=== PATIENT | male | born 1940 | race Caucasian/White ===

== ENCOUNTER 2017-03-16 13:07 | Emergency (ER) | payer OTHER ==
[~2017-03-16] VITALS: Ht 185.4 cm; Wt 92.1 kg
[~2017-03-16 13:07] MED LIST: ALLO300T2 PO; AMLO5CAP2 PO; AMOX875T PO; BLACK CHERRY PO; PRT40 PO; QUET1TAB7 PO; SRQ/100 PO; SUMA100T15 PO; TEST1INJ2 SQ; VENL150C56 PO
[2017-03-16 13:19] VITALS: TEMP 36.5; Ht 185.4 cm; Wt 92.1 kg
[2017-03-16] MEDS ORDERED: METH1TAB16 PO (13:41)
[2017-03-16 14:26] LABS: BASO % 0.5 %; BASO ABS # 0.04 K/uL (0-0.2); COMPLETE YES; EOS % 1.2 %; HEMATOCRIT 51.6 % (42-52); IG% 0.3 %; LYMPH % 14.9 %; MEAN CELL VOLUME 88.2 fL (80-100); MEAN CORPUSCULAR HEMOGLOBIN 30.9 pg (25-34); MEAN CORPUSCULAR HGB CONC 35.1 g/dl (32-36); MEAN PLATELET VOLUME 10.8 fL (7.4-10.4); MONO % 11.2 %; NEUT % 71.9 %; PLATELET COUNT 212 K/uL (130-400); RED BLOOD COUNT 5.85 M/uL (4.7-6.1); WHITE BLOOD COUNT 7.38 K/uL (4.8-10.8)
[2017-03-16 14:36] LABS: PARTIAL THROMBOPLASTIN RATIO 1.1; PROTHROMBIN TIME (PATIENT) 11.2 SECONDS (9.0-12.0)
--- NOTE | 2017-03-16 14:52 | EMERGENCY ROOM VISIT NOTE ---
ED Visit Note First contact with patient: 13:31 The patient was seen and examined with Otilia Rosado PA-C. I agree with the history, physical and findings. Please see the note for disposition and details.
[2017-03-16] MEDS ORDERED: OXYMETAZOLINE HCL 0.05% NA SPR 15 ML BTL ONE ×2 (14:57→15:00)
[2017-03-16] MEDS ORDERED: LIDOCAINE/EPINEPHRINE 1% 20 ML VIAL ONE (15:10)
--- NOTE | 2017-03-16 15:52 | EMERGENCY ROOM VISIT NOTE ---
ED Visit Note First contact with patient: 13:31 CHIEF COMPLAINT: Nosebleed HISTORY OF PRESENT ILLNESS: This 76-year-old male patient presents to the emergency department pinning of a nosebleed 2 hours. The patient states the bleeding initially began in his right nare, then also began coming from his left ear. The patient reports a constant stream of blood without a nasal clip. The patient does present to the emergency department wearing a nose clip he had at home from previous epistaxis. The patient did have a surgery to cauterize the right nare due to his severe epistaxis one and half years ago. This procedure was done by Dr. Aranda, the patient states he was not a fan of Dr. Aranda and would like to see different ear nose and throat doctor. Prior to arrival, the patient did try Afrin nasal spray with no relief of the symptoms. The patient does use a humidifier, and is not on blood thinners, but the patient does take a baby aspirin once daily. The patient states he has been continuously swallowing blood, and states it feels crampy and coagulated. The patient denies history of bleeding or clotting disorders. The patient denies headache, dizziness, dyspnea, blurry vision, tinnitus, or other associated symptoms. REVIEW OF SYSTEMS: A 10-system review of systems was performed with positives and pertinent negatives listed in the history of present illness. All other systems were reviewed and are negative. ALLERGIES: Iodine contrast MEDICATIONS: Allopurinol, amlodipine/Benazepril, methylphenidate, pantoprazole, Seroquel, Imitrex, testosterone cypionate, venlafaxine, black Calvillo PMH: Gout, hypertension, anxiety/depression, GERD, migraines SOCIAL HISTORY: The patient lives locally with family. He denies drug, alcohol , tobacco use. PHYSICAL EXAM: VITALS: Vitals are noted on the nurse's note and reviewed by myself. Vital signs stable. GENERAL: This is a 76-year-old male, in no acute distress, nondiaphoretic, well- developed well-nourished. SKIN: The skin was without rashes, erythema, edema, or bruising. There is no tenting of the skin. Capillary reflex less than 2 seconds. HEAD: Normocephalic atraumatic. EARS: External auditory canals clear, tympanic membranes pearly woodruff without erythema or effusion bilaterally. EYES: Pupils equal round and reactive to light and accommodation. Conjunctivae without injection, sclerae without icterus. Extraocular movements intact. NOSE: Continuous, runny epistaxis from bilateral nares. No obvious origin of bleeding. No obvious trauma or injury within the nares. No blood clots within the naris. Patent, turbinates without inflammation. No sinus tenderness. MOUTH: Mucous membranes moist. Tonsils are not enlarged. Pharynx without erythema or exudate, however there is a significant amount of blood in the posterior pharynx. Uvula midline. Airway patent. Tongue does not deviate. NECK: Supple without nuchal rigidity. No lymphadenopathy. No thyromegaly. Cervical spine is nontender. No JVD. HEART: Regular rate and rhythm without murmurs gallops or rubs. LUNGS: Clear to auscultation bilaterally without wheezes, rales or rhonchi. No dullness to percussion. No retractions or accessory muscle use. EMERGENCY DEPARTMENT COURSE: Was seen and evaluated as above. Labs were drawn without abnormalities. I discussed with the patient possible treatment options including further Afrin and a Rhino Rocket. The patient states he would like to consider any other treatment options as opposed to the Rhino Rocket due to his previous history and extreme discomfort with this method. I discussed with the patient that I could contact the ENT conservation worker and discuss his case with them and consider an alternative treatment. I contacted Dr. Moore regarding this patient, and was instructed by him to discuss the case with my attending prior to calling the specialist. I discussed the case with Dr. Long, who discussed options of care with the patient including using a Rhino Rocket and attempting to diminish bleeding with lidocaine with epinephrine on the Rhino Rocket. Upon Dr. Long' evaluation of the patient, the active bleeding did stop when the nasal clip was removed. At this time, Dr. Moore and his physician fleet assistant did come to evaluate the patient in the emergency department. Please see his dictation for further management and care. The patient was discharged home in good condition. The patient and his were extremely pleased with their care , and did thank me for contacting ENT versus proceeding with using a Rhino Rocket in the emergency department. DIFFERENTIAL DIAGNOSIS: Epistaxis, bleeding disorder, thrombocytopenia, hypertension, acute sinusitis, septal deviation, malignancy, and others. DIAGNOSIS: Acute epistaxis DISCHARGE INSTRUCTIONS & TREATMENT: Please follow instructions outlined to you by Dr. Moore. Please follow up in their office at your scheduled appointment. Do not blow your nose for the rest of the day, as this may dislodge a clot and cause rebleed. Use Afrin spray as directed for ongoing nosebleed. Please contact ENT in the future if possible for rebleeds. Please follow-up with your PCP and 2-3 days for further evaluation and management. Please return to the emergency department for worsening bleeding, headache, dizziness, difficulty breathing, dizziness, ringing in the ears, or other concerning symptoms. Current/Historical Medications Scheduled Allopurinol (Zyloprim), 150 MG PO HS Amlodipine/Benazepril (Lotrel 5MG/20MG), 1 CAP PO QAM Methylphenidate Hcl (Methylphenidate Hcl Er), 18 MG PO QAM Pantoprazole (Pantoprazole Sodium), 40 MG PO BID Quetiapine Fumarate (Seroquel), 100 MG PO HS Testosterone Cypionate (Testosterone Cypionate), 200 MG SQ Q4WK Venlafaxine Hcl (Effexor Extended Rel), 150 MG PO DAILY [Black Calvillo], 750 MG PO BID Scheduled PRN Quetiapine Fumarate (Seroquel), 25 MG PO DAILY PRN for PRN Sumatriptan Succinate (Imitrex), 25 MG PO DAILY PRN for Headache Allergies Coded Allergies: Iodinated Diagnostic Agents (Verified Allergy, Mild, RASH, 08/29/15) Vital Signs Date Time Temp Pulse Resp B/P (MAP) Pulse Ox O2 Delivery O2 Flow Rate FiO2 03/16/17 16:12 91 18 152/94 94 Room Air 03/16/17 13:19 36.5 106 18 143/93 94 Room Air Laboratory Results 03/16/17 14:10 Red Blood Count 5.85, Mean Corpuscular Volume 88.2, Mean Corpuscular Hemoglobin 30.9, Mean Corpuscular Hemoglobin Concent 35.1, Mean Platelet Volume 10.8, Neutrophils (%) (Auto) 71.9, Lymphocytes (%) (Auto) 14.9, Monocytes (%) (Auto) 11.2, Eosinophils (%) (Auto) 1.2, Basophils (%) (Auto) 0.5, Neutrophils # (Auto ) 5.30, Lymphocytes # (Auto) 1.10, Monocytes # (Auto) 0.83, Eosinophils # (Auto ) 0.09, Basophils # (Auto) 0.04 Test 03/16/17 14:10 White Blood Count 7.38 K/uL (4.8-10.8) Red Blood Count 5.85 M/uL (4.7-6.1) Hemoglobin 18.1 g/dL (14.0-18.0) Hematocrit 51.6 % (42-52) Mean Corpuscular Volume 88.2 fL (80-100) Mean Corpuscular Hemoglobin 30.9 pg (25-34) Mean Corpuscular Hemoglobin Concent 35.1 g/dl (32-36) Platelet Count 212 K/uL (130-400) Mean Platelet Volume 10.8 fL (7.4-10.4) Neutrophils (%) (Auto) 71.9 % Lymphocytes (%) (Auto) 14.9 % Monocytes (%) (Auto) 11.2 % Eosinophils (%) (Auto) 1.2 % Basophils (%) (Auto) 0.5 % Neutrophils # (Auto) 5.30 K/uL (1.4-6.5) Lymphocytes # (Auto) 1.10 K/uL (1.2-3.4) Monocytes # (Auto) 0.83 K/uL (0.11-0.59) Eosinophils # (Auto) 0.09 K/uL (0-0.5) Basophils # (Auto) 0.04 K/uL (0-0.2) RDW Standard Deviation 49.7 fL (36.4-46.3) RDW Coefficient of Variation 15.6 % (11.5-14.5) Immature Granulocyte % (Auto) 0.3 % Immature Granulocyte # (Auto) 0.02 K/uL (0.00-0.02) Prothrombin Time 11.2 SECONDS (9.0-12.0) Prothromb Time International Ratio 1.0 (0.9-1.1) Activated Partial Thromboplast Time 27.9 SECONDS (21.0-31.0) Partial Thromboplastin Ratio 1.1 Medications Administered Medications (Trade) Dose Ordered Sig/Becca Route Start Time Stop Time Status Last Admin Dose Admin Oxymetazoline HCl (Afrin 0.05% Nasal [place]) 75 sprays STK-MED ONCE .ROUTE 03/16/17 14:57 03/16/17 14:58 DC 03/16/17 14:57 75 SPRAYS Lidocaine/ Epinephrine (Xylocaine/Epine 1% Inj) 20 ml STK-MED ONCE .ROUTE 03/16/17 15:10 03/16/17 15:11 DC 03/16/17 15:10 20 ML Departure Information Impression Primary Impression: Epistaxis Dispostion Home / Self-Care Condition GOOD Referrals Noel Rogers D.O. (PCP) Jose Moore MD Forms WORK / SCHOOL INSTRUCTIONS, HOME CARE DOCUMENTATION FORM, IMPORTANT VISIT INFORMATION Patient Instructions ED Nosebleed, [facility] Additional Instructions Please follow instructions outlined to you by Dr. Moore. Please follow up in their office at your scheduled appointment. Do not blow your nose for the rest of the day, as this may dislodge a clot and cause rebleed. Use Afrin spray as directed for ongoing nosebleed. Please contact ENT in the future if possible for rebleeds. Please follow-up with your PCP and 2-3 days for further evaluation and management. Please return to the emergency department for worsening bleeding, headache, dizziness, difficulty breathing, dizziness, ringing in the ears, or other concerning symptoms.
[2017-03-16 16:12] VITALS: BP 152/94; PULSE 91; O2SAT 94
--- NOTE | 2017-03-16 16:32 | ENT CONSULTATION ---
DATE OF CONSULTATION: 03/16/2017 DATE: 03/16/2017 I have been asked by physician digital marketing assistant, Otilia Rosado and Dr. Harrison Long to evaluate this patient with severe epistaxis. HISTORY OF PRESENT ILLNESS: The patient is a very pleasant 76-year-old male who presented to the [facility] Emergency Room this afternoon with severe right-sided epistaxis. This did not respond to Afrin and direct pressure at home as well as Afrin and direct pressure in the Emergency Room. Due to the severe nature, I was asked to evaluate the patient. The patient has a prior history of right-sided epistaxis for which he was seen in the Emergency Room on 08/01/2015 and subsequently again in August of 2015 and had cauterization by Dr. Aranda in his office which failed and he ultimately underwent an endoscopic cauterization in the outpatient surgery center which helped resolve his epistaxis. He had no epistaxis from that August 2015 procedure up until today. He is on a baby aspirin. He does have a history of hypertension. He was mildly hypertensive in the Emergency Room with a blood pressure of 143/93. He denies any personal history of bleeding disorders or family history of bleeding disorders. Prior to my arrival, it seemed that his bleeding had slowed down with the use of nasal clamping. ALLERGIES: IODINATED CONTRAST AGENTS. HOME MEDICATIONS: Allopurinol, amlodipine, methylphenidate, pantoprazole, Seroquel, testosterone, venlafaxine. PAST MEDICAL HISTORY: Gout, hypertension, reflux, low testosterone, anxiety, depression. PAST SURGICAL HISTORY: 1. Status post appendectomy. 2. Status post hernia repair. 3. Status post right-sided endoscopic cauterization. 4. Status post rotator cuff surgery. 5. Status post laminectomy. FAMILY HISTORY: Noncontributory. No bleeding disorders or malignant hyperthermia. SOCIAL HISTORY: The patient is retired. He is . He has 2 children. He denies any tobacco use. He drinks alcohol socially and typically has 1 glass of wine daily. He denies any illicit drug use. REVIEW OF SYSTEMS: The patient has severe epistaxis. He has mild lightheadedness, but denies any shortness of breath or chest pain. Currently he denies any bloody postnasal drip. He denies any facial pain or pressure. He denies any headache. PHYSICAL EXAMINATION: GENERAL: This is an elderly white male in no acute distress who has nasal clamps in place and dried blood over his upper lip and external nose. HEAD, EYES, EARS, NOSE, AND THROAT: External auditory canals and tympanic membranes are clear. Oral cavity and oropharyngeal examination reveals dried blood coating the mucous membranes but no active bleeding and no bloody postnasal drip. NECK EXAMINATION: Revealed no lymphadenopathy or thyroid nodularity. NEUROLOGIC: The patient is awake and alert and oriented x3. Cranial nerves II-XII are grossly intact. The patient has normal respiratory effort. The nasal clamps were removed. The patient has very prominent blood vessels involving the right anterior mid and posterior septum as well as some blood vessels that are prominent involving the right mid and posterior septum. There is mild oozing from several of these locations but no active bleeding. On the left hand side, there were no prominent blood vessels. PROCEDURE: After administration of topical Afrin and lidocaine to the bilateral nasal cavities, a 0-degree rigid endoscope was used to perform endoscopic cauterization of the prominent blood vessels involving the right anterior, mid, and posterior septum as well as the mid and posterior aspect of the right inferior turbinate. After this had been performed, a small amount of fibrillar was placed into the right nasal cavity and further Afrin was applied followed by nasal clamping. After 10 minutes nasal clamping was removed. There was no epistaxis. There was no bloody postnasal drip. IMPRESSION AND RECOMMENDATIONS: A 76-year-old male with severe epistaxis, status post endoscopic cauterization. The patient tolerated the procedure well. I have asked him to observe nasal rest over the next 2 weeks. I have asked him to have very light activity over the next 2 weeks. I would like to see him back in my office in approximately 3 weeks' time, but sooner if there is any epistaxis that he cannot control. The conservative prevention and treatment of epistaxis was discussed with the patient. If you have any questions regarding this consultation, please do not hesitate to contact me.
== END 2017-03-16 16:27 | disposition home or self-care (01) ==
LOC: C.EDB 13:09 → C.EDD 16:27
DX: R04.0 Epistaxis (principal); Z98.890 Other specified postprocedural states; Z79.82 Long term (current) use of aspirin; Z79.899 Other long term (current) drug therapy; M10.9 Gout, unspecified; I10 Essential (primary) hypertension; F41.8 Other specified anxiety disorders; K21.9 Gastro-esophageal reflux disease without esophagitis

== ENCOUNTER 2017-03-18 21:10 | Emergency (ER) | payer OTHER ==
[~2017-03-18] VITALS: Ht 185.4 cm; Wt 93.0 kg
[~2017-03-18 21:10] MED LIST changes: -AMOX875T PO; +METH1TAB16 PO
[2017-03-18 21:18] VITALS: Ht 185.4 cm; Wt 93.0 kg
[2017-03-18] MEDS ORDERED: LIDOCAINE 4% W/AFRIN NASAL SOLN 4ML EXT STA (22:26)
[2017-03-18] MEDS ORDERED: SILVER NITR/POTASSIUM NITRATE 10 APPLICATOR PACK EXT STA (22:26)
[2017-03-18] MEDS ORDERED: LIDOCAINE 4% W/AFRIN NASAL SOLN 4ML ONE (22:27)
--- NOTE | 2017-03-18 22:33 | EMERGENCY ROOM VISIT NOTE ---
History Report prepared by Jose De Jesus: Sadie Kulkarni Under the Supervision of: Dr. Vadim Tinoco M.D. First contact with patient: 22:17 Chief Complaint: NOSE BLEED (MINOR) Stated Complaint: NOSE BLEED History of Present Illness The patient is a 76 year old male who presents to the Emergency Room with complaints of an intermittent right sided epistaxis that began today around noon. The patient states that he was evaluated in the emergency department on Tuesday evening for a right sided epistaxis. He states that Dr. Moore from ENT came in and cauterized his nose. The patient states that he was scheduled for a follow up appointment with Dr. Moore in 2 weeks. He states that today at noon he noticed the nose bleed begin. The patient states that he used Afrin and then called Dr. Moore's office. He states that he was instructed to continue to use Afrin to help alleviate his symptoms. The patient states that he got the bleeding to stop, but it then began again. He states that it was again alleviated with Afrin. The patient states that at 1900 this evening the bleeding began again, noting that he used Afrin twice without relief of his symptoms. He states that he spoke to Dr. Moore, ENT and was told to come to the emergency department. The patient states that he has a history of an endoscopic cauterization in the past. He states that his bleeding was not as bad as Tuesday. He notes the bleeding draining down his throat. He reports that he takes an 81 mg aspirin daily. The patient denies any fall or trauma to the nose. Source of History: patient Onset: noon today Position: nose (right sided) Quality: other (epistaxis) Timing: intermittent Review of Systems See HPI for pertinent positives & negatives. A total of 10 systems reviewed and were otherwise negative. Past Medical & Surgical Medical Problems: (1) Hypertension Family History Cancer Diabetes mellitus Social History Smoking Status: Never Smoker Alcohol Use: occasionally Drug Use: none Marital Status: Housing Status: lives with family Occupation Status: retired Current/Historical Medications Scheduled Allopurinol (Zyloprim), 150 MG PO HS Amlodipine/Benazepril (Lotrel 5MG/20MG), 1 CAP PO QAM Cephalexin Monohydrate (Keflex), 500 MG PO TID Methylphenidate Hcl (Methylphenidate Hcl Er), 18 MG PO QAM Pantoprazole (Pantoprazole Sodium), 40 MG PO BID Quetiapine Fumarate (Seroquel), 100 MG PO HS Testosterone Cypionate (Testosterone Cypionate), 200 MG SQ Q4WK Venlafaxine Hcl (Effexor Extended Rel), 150 MG PO DAILY [Black Calvillo], 750 MG PO BID Scheduled PRN Quetiapine Fumarate (Seroquel), 25 MG PO DAILY PRN for PRN Sumatriptan Succinate (Imitrex), 25 MG PO DAILY PRN for Headache Allergies Coded Allergies: Iodinated Diagnostic Agents (Verified Allergy, Mild, RASH, 03/18/17) Physical Exam Vital Signs Date Time Temp Pulse Resp B/P (MAP) Pulse Ox O2 Delivery O2 Flow Rate FiO2 03/19/17 00:30 84 16 130/88 98 03/18/17 21:18 101 18 138/93 94 Room Air Physical Exam GENERAL: Patient is in no acute distress. HEENT: Oozing of blood from the right anterior septum, there is some oozing of blood down the back of the throat, some dried blood on mustache, left naris is clear. Mucous membranes are moist. NECK: No stridor, no adenopathy, no meningismus, trachea is midline. LUNGS: Clear to auscultation bilaterally, no wheeze, no rhonchi, breath sounds equal. HEART: Without murmurs gallops or rubs, regular rate and rhythm. ABDOMEN: Soft, nontender, bowel sounds positive, no hernias, no peritonitis. EXTREMITIES: No cyanosis or edema, full range of motion of all the joints without pain or difficulty, no signs for acute trauma. NEUROLOGIC: Oriented x 3, no acute motor or sensory deficits, no focal weakness. SKIN: No rash, no jaundice, no diaphoresis. Medical Decision & Procedures Procedure Nasal cautery: Using Afrin, lidocaine spray and silver nitrate, the right anterior septum was cauterized and pressure was applied. No complications. Anterior and Posterior Nasal Packing Indication: persistent nasal bleeding Verbal consent obtained. Risks and benefits were explained with the usual customary discussion. A time out was taken. Clots were removed. The right naris was prepped with Afrin and lidocaine. A 7.5-cm nasal balloon was placed in the standard fashion. The patient tolerated this well. Hemostasis was achieved. No complications. ED Course 2218: The patient was evaluated in room C6. A complete history and physical exam was performed. 2226: Ordered Silver Nitrate/Potassium Nitrate 3 pkt EXT, Lidocaine HCl 4 ml EXT. 2300: I cauterized the patients nose at this time. 2313: I reevaluated the patient and he is still bleeding from his nose. ENT will be consulted. 2315: I discussed the patients case with VERONICA Epstein. He states that he would like the patients nose packed. He states that if it does not work to call him back. 2319: At this time I placed a rhino-rocket in the patient's nose. See procedure note for further detail. 0022: I reevaluated the patient and he is doing well. I discussed the exam findings with him and I discussed the treatment plan. He verbalized complete understanding and agreement. He is ready to go home. Medical Decision The patient is a 76 year old male who presents to the ED with complaints of right sided epistaxis. Differential diagnoses considered include Anterior or posterior epistaxis, coagulopathy, uncontrolled hypertension, anemia. The patient presents with persistent right-sided epistaxis. He had undergone cautery by ENT just a few days ago. The patient had Afrin and a nasal clip applied. He was still bleeding. I then attempted silver nitrate cautery along the anterior nasal septum. The patient was still bleeding some along the anterior aspect of the nose but seemed to be primarily bleeding down the posterior pharynx. He continued to cough up and bringing up clots. He even had some bleeding from the left side of his nose. I spoke with the ENT doctor ammunition assembly ii laborer. He did request we place a 7.5 cm nasal pack on the right. I did place the pack as noted above without complication. No further bleeding afterwards. The patient is being discharged on Keflex to prevent sinusitis. He will be seeing the ENT doctor in 3 days. If he is bleeding despite the nasal pack, he can return for reassessment. Medication Reconcilliation Current Medication List: was personally reviewed by me Blood Pressure Screening Patient's blood pressure: Elevated blood pressure Blood pressure disposition: Elevated BP felt to be situational, Did not require urgent referral Consults Time Called: 2313 Consulting Physician: Dr. Moore ENT Returned Call: 2314 I discussed the patients case with Dr. Freiman, ENT. He states that he would like the patients nose packed. He states that if it does not work to call him back. Impression Primary Impression: Right-sided epistaxis Scribe Attestation The scribe's documentation has been prepared under my direction and personally reviewed by me in its entirety. I confirm that the note above accurately reflects all work, treatment, procedures, and medical decision making performed by me. Departure Information Dispostion Home / Self-Care Prescriptions Cephalexin Monohydrate (Keflex) 500 Mg Cap 500 MG PO TID for 5 Days, #15 CAP Prov: Vadim Tinoco M.D. 03/19/17 Referrals Noel RogersDTroyOTroy (PCP) Forms HOME CARE DOCUMENTATION FORM, IMPORTANT VISIT INFORMATION, WORK / SCHOOL INSTRUCTIONS Patient Instructions My [facility] Additional Instructions pack in for 3 days return for return of bleeding keflex 3x per day for 5 days see ENT on Tuesday
[2017-03-19] MEDS ORDERED: CEPH500C PO (00:21)
[2017-03-19 00:30] VITALS: BP 130/88; PULSE 84; O2SAT 98
== END 2017-03-19 00:30 | disposition home or self-care (01) ==
LOC: C.EDB 21:12 → C.EDC 03-19 00:30
DX: R04.0 Epistaxis (principal); Z79.82 Long term (current) use of aspirin; I10 Essential (primary) hypertension; Z80.9 Family history of malignant neoplasm, unspecified; Z83.3 Family history of diabetes mellitus; Z79.899 Other long term (current) drug therapy

== ENCOUNTER 2018-11-22 09:30 | Inpatient (IN) ==
[2018-11-22] MEDS ORDERED: SODIUM CHLORIDE 0.9% 1000ML 1,000 ML IV SCH (10:00)
[2018-11-22 10:20] LABS: Basophils # (auto) 0.03 K/uL (0-0.2); Basophils % (auto) 0.5 %; Eosinophils # (auto) 0.23 K/uL (0-0.5); Eosinophils % (auto) 3.5 %; Hematocrit (blood only) 47.6 % (42-52); Hemoglobin 16.5 g/dL (14.0-18.0); Immature Granulocytes # (auto) 0.02 K/uL (0.00-0.02); Immature Granulocytes % (auto) 0.3 %; Lymphocytes # (auto) 1.21 K/uL (1.2-3.4); Lymphocytes % (auto) 18.5 %; Mean Corpuscular Hgb Conc 34.7 g/dL (32-36); Mean Corpuscular Volume 91.5 fL (80-100); Mean Platelet Volume 11.2 fL (7.4-10.4); Monocytes # (auto) 0.48 K/uL (0.11-0.59); Monocytes % (auto) 7.3 %; Neutrophils # (auto) 4.58 K/uL (1.4-6.5); Neutrophils % (auto) 69.9 %; Platelet Count 201 K/uL (130-400); RDW Coefficient of Variation 14.6 % (11.5-14.5); RDW Standard Deviation 49.3 fL (36.4-46.3); White Blood Count 6.55 K/uL (4.8-10.8)
[2018-11-22 10:31] LABS: INR 1.1 (0.9-1.1); Partial Thromboplastin Time 27.3 Seconds (21.0-31.0); Prothrombin Time 10.9 Seconds (9.0-12.0)
[2018-11-22 10:35] LABS: Albumin Level 3.4 gm/dl (3.4-5.0); Calcium 8.5 mg/dl (8.5-10.1); Est GFR (African American) 70.7; Potassium 3.7 mmol/L (3.5-5.1)
[2018-11-22 10:38] LABS: Albumin Globulin Ratio 0.9 (0.9-2); Bilirubin,Total 0.5 mg/dl (0.2-1); Globulin 3.8 gm/dl (2.5-4.0); Total Protein 7.2 gm/dl (6.4-8.2)
[2018-11-22 11:47] LABS: Appearance Urine Clear (Clear); Bacteria Urine Automated Negative (Negative); Bilirubin Urine Negative (Negative); Blood Urine Negative (Negative); Color Urine Dark Yellow; Glucose Urine UA Negative (Negative); Ketones Urine Trace (Negative); Leukocyte Esterase Urine Trace (Negative); Nitrite Urine Negative (Negative); Protein Urine 2+ (Negative); RBC Urine Automated 0-4 /hpf (0-4); Specific Gravity Urine 1.025 (1.000-1.030); Urobilinogen Urine Negative (Negative)
--- NOTE | 2018-11-22 14:30 | History & Physical Report ---
Date of Service November 22, 2018 Assessment & Plan (1) GI bleed: several large, dark bloody bowel movements, mixed with liquid stool started this morning no history of this no abdominal pain, no hematemesis Hb stable and BP stable check stool culture, C diff (on abx) repeat H/H at 8pm with a type and cross NPO after midnight Pepcid IV consult Dr. Yee to see tomorrow stool was very dark, borderline like melena, consider PUD vs infectious diarrhea vs ischemic colitis (2) Hypertension: continue Lotrel and metoprolol (3) Depression: continue Abilify and Effexor (4) S/P trigger finger release: apply ice to left hand q3 hours History of Present Illness Chief Complaint: I am having bloody bowels Primary Care Provider: Noel Rogers, DO 78 yo male with recent history of trigger finger release by Dr. Colin, presented to the ED today with c/o bloody bowel movements. The patient has never had GI bleeding in the past. No history of ulcers, no history of diverticular disease to his knowledge. He does have hemorrhoids but they never bleed. He had a colonoscopy a few years ago, thinks he had a few polyps. He felt well, was recovering from trigger finger release. He was taking a prophylactic antibiotic. Ate well yesterday, no suspicious food like undercooked chicken or beef. He had urge to move bowels this morning and he described it as large volume diarrhea but it was stool mixed with both red and dark blood as well as clots. There was no abdominal pain associated with the BM. No nausea or vomiting. He came to the ED. Vitals were stable, Hb was 16. ED planned to send him home with GI follow up with [facility]. However, he had two further large BM. The BM were very dark, melanotic mixed with brighter red blood. Asked for admission. Patient is a retired physicist. No history of alcohol abuse, no tobacco history. Mother had colon cancer. Father had diabetes and HTN. Allergies Allergy/AdvReac Type Severity Reaction Status Date / Time Iodinated Contrast- Oral and Allergy Mild RASH Verified 11/21/18 06:25 IV Dye Home Medications Home Medications Medication Instructions Recorded Confirmed Type allopurinol 150 mg PO QPM 11/01/18 11/22/18 History amlodipine-benazepril [Lotrel] 1 cap PO QAM 11/01/18 11/22/18 History aripiprazole [Abilify] 1 mg PO QAM 11/01/18 11/22/18 History metoprolol succinate 50 mg PO QAM 11/01/18 11/22/18 History pantoprazole 40 mg PO QAM 11/01/18 11/22/18 History quetiapine [Seroquel] 100 mg PO HS 11/01/18 11/22/18 History sumatriptan succinate 1 dose PO UD PRN 11/01/18 11/22/18 History venlafaxine 150 mg PO QAM 11/01/18 11/22/18 History testosterone cypionate 1 dose SUBCUT DIRECTED 11/22/18 11/22/18 History [Depo-Testosterone] Past Med/Surg History Medical History Anxiety Chronic back pain Depression GERD (gastroesophageal reflux disease) Gout Hearing deficit BL SPICER Hypertension Surgical History H/O tooth extraction History of appendectomy History of bilateral inguinal hernia repair History of colonoscopy History of esophagogastroduodenoscopy (EGD) History of lumbar laminectomy History of repair of rotator cuff LT History of thumb surgery History of tonsillectomy Hx of cataract surgery Family History Father Family history of diabetes mellitus Mother Family hx of colon cancer Social History Preferred Language: Swedish Communication Ability: Effective Wellness Rn Required: No Beliefs That Will Affect Care: None Current Living Situation: Spouse Other Information That Helps Us Care for You: No Feels Safe at Home: Yes Safety Concerns: Feels Safe At This Time Smoking Status: Never smoker Do You Dip or Chew Tobacco: No Second Hand Exposure: No Tobacco Cessation Education Requested by Patient: No Hx Alcohol Use: Yes Alcohol type: beer, wine and hard liquor Hx Substance Use: No Review of Systems Review of Systems: All systems reviewed & are unremarkable except as noted in HPI & below Physical Exam Vital Signs (Past 24 Hours): Last Vital Signs Temp 36.9 C 11/22/18 09:33 Pulse 76 11/22/18 12:00 Resp 18 11/22/18 12:00 BP 164/97 H 11/22/18 12:00 Pulse Ox 98 11/22/18 12:00 Constitutional: WD/WN, vitals as above Eyes: PERRL, conjunctivae normal, anicteric sclerae ENMT: external ear and nose normal, oropharynx normal Neck: trachea midline, no thyromegaly Respiratory: normal respiratory effort, lungs clear to auscultation Cardiovascular: RRR, no murmur, no edema Gastrointestinal (Abdomen): normal bowel sounds, soft, nontender, no hepatosplenomegaly Musculoskeletal: no cyanosis or clubbing, extremities motor strength 5/5 left trigger finger, tender, mild swelling Skin: no rashes, warm and dry Neurologic: patellar DTR's 2+ bilat, sensation intact and PERRL, EOMI, accommodation nl, no face palsy, no dysarthria Psychiatric: A+Ox3, euthymic affect Lymphatic: no cervical or axillary lymphadenopathy Results & Data Laboratory Results Laboratory Results - last 24 hr 11/22/18 11/22/18 11/22/18 10:02 10:02 10:02 WBC 6.55 RBC 5.20 Hgb 16.5 Hct 47.6 MCV 91.5 MCH 31.7 MCHC 34.7 RDW Std Deviation 49.3 H RDW Coeff of Aisha 14.6 H Plt Count 201 MPV 11.2 H Immature Gran % (Auto) 0.3 Neut % (Auto) 69.9 Lymph % (Auto) 18.5 [place] % (Auto) 7.3 Eos % (Auto) 3.5 Baso % (Auto) 0.5 Immature Gran # (Auto) 0.02 Neut # (Auto) 4.58 Lymph # (Auto) 1.21 [place] # (Auto) 0.48 Eos # (Auto) 0.23 Baso # (Auto) 0.03 PT 10.9 INR 1.1 APTT 27.3 PTT Ratio 1.0 Sodium 140 Potassium 3.7 Chloride 109 H Carbon Dioxide 29 Anion Gap 2.0 L BUN 21 H Creatinine 1.15 Est Cr Clr Drug Dosing 64.0 Est GFR ( Amer) 70.7 Est GFR (Non-Af Amer) 61.0 BUN/Creatinine Ratio 18.0 Glucose 117 H Calcium 8.5 Total Bilirubin 0.5 AST 24 ALT 91 H Alkaline Phosphatase 80 Total Protein 7.2 Albumin 3.4 Globulin 3.8 Albumin/Globulin Ratio 0.9 Lipase 196 Urine Color Urine Appearance Urine pH Ur Specific [place] Urine Protein Urine Glucose (UA) Urine Ketones Urine Blood Urine Nitrite Urine Bilirubin Urine Urobilinogen Ur Leukocyte Esterase Urine WBC (Auto) Urine RBC (Auto) U Hyaline Cast (Auto) U Epithel Cells (Auto) Urine Bacteria (Auto) Stl C. diff Tox B Gene Stl C.difficile Tox A&B Blood Type Antibody Screen Crossmatch 11/22/18 11/22/18 11/22/18 10:05 11:35 17:00 WBC RBC Hgb Hct MCV MCH MCHC RDW Std Deviation RDW Coeff of Aisha Plt Count MPV Immature Gran % (Auto) Neut % (Auto) Lymph % (Auto) [place] % (Auto) Eos % (Auto) Baso % (Auto) Immature Gran # (Auto) Neut # (Auto) Lymph # (Auto) [place] # (Auto) Eos # (Auto) Baso # (Auto) PT INR APTT PTT Ratio Sodium Potassium Chloride Carbon Dioxide Anion Gap BUN Creatinine Est Cr Clr Drug Dosing Est GFR ( Amer) Est GFR (Non-Af Amer) BUN/Creatinine Ratio Glucose Calcium Total Bilirubin AST ALT Alkaline Phosphatase Total Protein Albumin Globulin Albumin/Globulin Ratio Lipase Urine Color Dark Yellow Urine Appearance Clear Urine pH 7.0 Ur Specific [place] 1.025 Urine Protein 2+ H Urine Glucose (UA) Negative Urine Ketones Trace H Urine Blood Negative Urine Nitrite Negative Urine Bilirubin Negative Urine Urobilinogen Negative Ur Leukocyte Esterase Trace H Urine WBC (Auto) 5-10 H Urine RBC (Auto) 0-4 U Hyaline Cast (Auto) 1-5 U Epithel Cells (Auto) 10-20 H Urine Bacteria (Auto) Negative Stl C. diff Tox B Gene Positive Cdiff Gene A Stl C.difficile Tox A&B Negative Cdiff Toxin Blood Type A Positive Antibody Screen NEGATIVE Crossmatch See Detail 11/22/18 20:02 WBC RBC Hgb 15.0 Hct 43.1 MCV MCH MCHC RDW Std Deviation RDW Coeff of Aisha Plt Count MPV Immature Gran % (Auto) Neut % (Auto) Lymph % (Auto) [place] % (Auto) Eos % (Auto) Baso % (Auto) Immature Gran # (Auto) Neut # (Auto) Lymph # (Auto) [place] # (Auto) Eos # (Auto) Baso # (Auto) PT INR APTT PTT Ratio Sodium Potassium Chloride Carbon Dioxide Anion Gap BUN Creatinine Est Cr Clr Drug Dosing Est GFR ( Amer) Est GFR (Non-Af Amer) BUN/Creatinine Ratio Glucose Calcium Total Bilirubin AST ALT Alkaline Phosphatase Total Protein Albumin Globulin Albumin/Globulin Ratio Lipase Urine Color Urine Appearance Urine pH Ur Specific [place] Urine Protein Urine Glucose (UA) Urine Ketones Urine Blood Urine Nitrite Urine Bilirubin Urine Urobilinogen Ur Leukocyte Esterase Urine WBC (Auto) Urine RBC (Auto) U Hyaline Cast (Auto) U Epithel Cells (Auto) Urine Bacteria (Auto) Stl C. diff Tox B Gene Stl C.difficile Tox A&B Blood Type Antibody Screen Crossmatch Code Status & VTE Plan Code Status full code VTE Prophylaxis Plan VTE Prophylaxis will be ordered: Yes
--- NOTE | 2018-11-22 14:58 | Emergency Department Note ---
Entered by Isabel Martin acting as a scribe for History of Present Illness General Chief complaint: GI Bleed Stated complaint: BLOOD IN STOOL Time Seen by Provider: 11/22/18 09:49 History of Present Illness Provider complaint: rectal bleeding Onset (ago): day(s) (this morning) Location: buttocks (rectum) Pain Consistency: + other (episode) Quality: + other (rectal bleeding) Associated symptoms: + other (lightheadedness. Denies: urinary symptoms, nausea, vomiting, leg swelling.) The patient is a 78 year old white male w/ PMHx of HTN, s/p trigger finger repair, who presents to the ED w/ CC of an episode of rectal bleeding beginning this morning. He reports he did not have to strain to have the bowel movement, and had a loose stool with blood. The patient reports lightheadedness. He denies urinary symptoms, nausea, vomiting, or leg swelling. The patient notes history o f hemorrhoids, and denies history of IBS, Chrohn's, etc. He denies recent constipation or trauma. The patient states he had a trigger finger repair yesterday, under sedation, by Dr. Roy. He reports he began taking an antibiotic last night. The patient takes a baby aspirin daily, and no other blood thinners. Home Medications Home Medications Medication Instructions Recorded Confirmed Type allopurinol 150 mg PO QPM 11/01/18 11/22/18 History amlodipine-benazepril [Lotrel] 1 cap PO QAM 11/01/18 11/22/18 History aripiprazole [Abilify] 1 mg PO QAM 11/01/18 11/22/18 History metoprolol succinate 50 mg PO QAM 11/01/18 11/22/18 History pantoprazole 40 mg PO QAM 11/01/18 11/22/18 History quetiapine [Seroquel] 100 mg PO HS 11/01/18 11/22/18 History sumatriptan succinate 1 dose PO UD PRN 11/01/18 11/22/18 History venlafaxine 150 mg PO QAM 11/01/18 11/22/18 History testosterone cypionate 1 dose SUBCUT DIRECTED 11/22/18 11/22/18 History [Depo-Testosterone] Allergies Allergy/AdvReac Type Severity Reaction Status Date / Time Iodinated Contrast- Oral and Allergy Mild RASH Verified 11/21/18 06:25 IV Dye Past Med/Surg History Medical History Anxiety Chronic back pain Depression GERD (gastroesophageal reflux disease) Gout Hearing deficit BL SPICER Hypertension Surgical History H/O tooth extraction History of appendectomy History of bilateral inguinal hernia repair History of colonoscopy History of esophagogastroduodenoscopy (EGD) History of lumbar laminectomy History of repair of rotator cuff LT History of thumb surgery History of tonsillectomy Hx of cataract surgery Family History Father Family history of diabetes mellitus Mother Family hx of colon cancer Social History Preferred Language: Amharic Communication Ability: Effective Beliefs That Will Affect Care: Tenriism Tenriism Beliefs: HOAHAOISM Current Living Situation: Spouse Feels Safe at Home: Yes Smoking Status: Never smoker Second Hand Exposure: Yes (PREVIOUS EXPOSURE) Hx Alcohol Use: Yes Alcohol type: wine Hx Substance Use: No Review of Systems See HPI for pertinent positives & negatives. and A total of 10 systems reviewed and were otherwise negative Physical Exam Vital Signs Vital Signs - 24 hr 11/22/18 09:33 11/22/18 12:00 Temperature 36.9 C Temperature Source Oral Sepsis Recent Fever Within 48 Hours No Sepsis New/Unexplained Change in Mental Status No Sepsis Action Taken by Nursing No Action Required Pulse Rate 97 H Pulse Rate [Right Finger] 76 Pulse Rhythm [Right Finger] Regular Pulse Strength [Right Finger] Normal Respiratory Rate 20 18 Respiratory Effort / Characteristics Non-Labored Spontaneous Respiratory Depth Normal Respiratory Pattern Regular Blood Pressure 133/83 Blood Pressure [Right Arm] 164/97 H Blood Pressure Mean 99 Blood Pressure Mean [Right Arm] 119 Blood Pressure Position [Right Arm] Lying Pulse Oximetry 95 98 Oxygen Delivery Method Room Air Room Air GENERAL: Well appearing, well nourished, NAD, non-toxic. EYE EXAM: Normal conjunctiva. PERRL, no anisocoria and EOM's grossly intact w/o pain. OROPHARYNX: Moist MM. NECK: Supple, no nuchal rigidity, no adenopathy, non-tender. No signs of meningismus. LUNGS: Clear to auscultation. Normal chest wall mechanics. HEART: NSR, no MRG. ABDOMEN: Abdomen soft, non-tender, normo-active bowel sounds, no masses, no rebound or guarding. RECTAL: No anal fissures. No hemorrhoids. No active bleeding. Hemoccult pos itive. No dark, tarry stool. Scant bright red blood, no masses. BACK: No CVA TTP. SKIN: No rashes and no bruising. UPPER EXTREMITIES: Upper extremities are grossly normal. LOWER EXTREMITIES: No pitting edema. No calf pain. NEURO EXAM: A and O x3. GCS 15. Moves all 4 extremities on command w/o issue. Course 1000: Past medical records reviewed. The patient was evaluated in room B9, and a complete history and physical examination were performed. 1208: I reevaluated and updated the patient. 1254: The patient and his do not feel comfortable with discharge home. I discussed test results. They verbalized agreement with the treatment plan. 1302: I spoke with a PA from [facility]. They state the patient can stop antibiotics if he has no symptoms of infection. 1314: I reviewed the patient's case with Dr. Morataya, [facility] hospitalist. He will evaluate the patient for further management. Consultations Consultation #1: [facility] Time: 13:02 Consultation #2: Dr. Morataya, [facility] hospitalist Time: 13:14 Administered Medications Sodium Chloride (Nss 1000ml) 1,000 mls @ 100 mls/hr IV .Q10H ALISSON Stop: 11/22/18 19:59 Last Admin: 11/22/18 10:43 Dose: 100 mls/hr Documented by: [id number] Medical Decision Making Medical Records Attestation: I reviewed the patient's medical records. Home Medications Current Medication List: was personally reviewed by me Laboratory Data Attestation: I reviewed the patient's lab results. Result diagrams: 11/22/18 10:02 11/22/18 10:02 Lab Results 11/22/18 11/22/18 11/22/18 Range/Units 10:02 10:02 10:02 WBC 6.55 (4.8-10.8) K/uL RBC 5.20 (4.7-6.1) M/uL Hgb 16.5 (14.0-18.0) g/dL Hct 47.6 (42-52) % MCV 91.5 (80-100) fL MCH 31.7 (25-34) pg MCHC 34.7 (32-36) g/dL RDW Std Deviation 49.3 H (36.4-46.3) fL RDW Coeff of Aisha 14.6 H (11.5-14.5) % Plt Count 201 (130-400) K/uL MPV 11.2 H (7.4-10.4) fL Immature Gran % (Auto) 0.3 % Neut % (Auto) 69.9 % Lymph % (Auto) 18.5 % [place] % (Auto) 7.3 % Eos % (Auto) 3.5 % Baso % (Auto) 0.5 % Immature Gran # (Auto) 0.02 (0.00-0.02) K/uL Neut # (Auto) 4.58 (1.4-6.5) K/uL Lymph # (Auto) 1.21 (1.2-3.4) K/uL [place] # (Auto) 0.48 (0.11-0.59) K/uL Eos # (Auto) 0.23 (0-0.5) K/uL Baso # (Auto) 0.03 (0-0.2) K/uL PT 10.9 (9.0-12.0) Seconds INR 1.1 (0.9-1.1) APTT 27.3 (21.0-31.0) Seconds PTT Ratio 1.0 Sodium 140 (136-145) mmol/L Potassium 3.7 (3.5-5.1) mmol/L Chloride 109 H (98-107) mmol/L Carbon Dioxide 29 (21-32) mmol/L Anion Gap 2.0 L (3-11) BUN 21 H (7-18) mg/dl Creatinine 1.15 (0.6-1.4) mg/dl Est Cr Clr Drug Dosing 64.0 ml/min Est GFR ( Amer) 70.7 Est GFR (Non-Af Amer) 61.0 BUN/Creatinine Ratio 18.0 (10-20) Glucose 117 H (70-99) mg/dl Calcium 8.5 (8.5-10.1) mg/dl Total Bilirubin 0.5 (0.2-1) mg/dl AST 24 (15-37) U/L ALT 91 H (12-78) U/L Alkaline Phosphatase 80 (45-117) U/L Total Protein 7.2 (6.4-8.2) gm/dl Albumin 3.4 (3.4-5.0) gm/dl Globulin 3.8 (2.5-4.0) gm/dl Albumin/Globulin Ratio 0.9 (0.9-2) Lipase 196 (73-393) U/L Urine Color Urine Appearance (Clear) Urine pH (4.5-7.5) Ur Specific [place] (1.000-1.030) Urine Protein (Negative) Urine Glucose (UA) (Negative) Urine Ketones (Negative) Urine Blood (Negative) Urine Nitrite (Negative) Urine Bilirubin (Negative) Urine Urobilinogen (Negative) Ur Leukocyte Esterase (Negative) Urine WBC (Auto) (0-5) /hpf Urine RBC (Auto) (0-4) /hpf U Hyaline Cast (Auto) (0-5) /lpf U Epithel Cells (Auto) (0-5) /lpf Urine Bacteria (Auto) (Negative) Blood Type Antibody Screen 11/22/18 11/22/18 Range/Units 10:05 11:35 WBC (4.8-10.8) K/uL RBC (4.7-6.1) M/uL Hgb (14.0-18.0) g/dL Hct (42-52) % MCV (80-100) fL MCH (25-34) pg MCHC (32-36) g/dL RDW Std Deviation (36.4-46.3) fL RDW Coeff of Aisha (11.5-14.5) % Plt Count (130-400) K/uL MPV (7.4-10.4) fL Immature Gran % (Auto) % Neut % (Auto) % Lymph % (Auto) % [place] % (Auto) % Eos % (Auto) % Baso % (Auto) % Immature Gran # (Auto) (0.00-0.02) K/uL Neut # (Auto) (1.4-6.5) K/uL Lymph # (Auto) (1.2-3.4) K/uL [place] # (Auto) (0.11-0.59) K/uL Eos # (Auto) (0-0.5) K/uL Baso # (Auto) (0-0.2) K/uL PT (9.0-12.0) Seconds INR (0.9-1.1) APTT (21.0-31.0) Seconds PTT Ratio Sodium (136-145) mmol/L Potassium (3.5-5.1) mmol/L Chloride (98-107) mmol/L Carbon Dioxide (21-32) mmol/L Anion Gap (3-11) BUN (7-18) mg/dl Creatinine (0.6-1.4) mg/dl Est Cr Clr Drug Dosing ml/min Est GFR ( Amer) Est GFR (Non-Af Amer) BUN/Creatinine Ratio (10-20) Glucose (70-99) mg/dl Calcium (8.5-10.1) mg/dl Total Bilirubin (0.2-1) mg/dl AST (15-37) U/L ALT (12-78) U/L Alkaline Phosphatase (45-117) U/L Total Protein (6.4-8.2) gm/dl Albumin (3.4-5.0) gm/dl Globulin (2.5-4.0) gm/dl Albumin/Globulin Ratio (0.9-2) Lipase (73-393) U/L Urine Color Dark Yellow Urine Appearance Clear (Clear) Urine pH 7.0 (4.5-7.5) Ur Specific [place] 1.025 (1.000-1.030) Urine Protein 2+ H (Negative) Urine Glucose (UA) Negative (Negative) Urine Ketones Trace H (Negative) Urine Blood Negative (Negative) Urine Nitrite Negative (Negative) Urine Bilirubin Negative (Negative) Urine Urobilinogen Negative (Negative) Ur Leukocyte Esterase Trace H (Negative) Urine WBC (Auto) 5-10 H (0-5) /hpf Urine RBC (Auto) 0-4 (0-4) /hpf U Hyaline Cast (Auto) 1-5 (0-5) /lpf U Epithel Cells (Auto) 10-20 H (0-5) /lpf Urine Bacteria (Auto) Negative (Negative) Blood Type A Positive Antibody Screen NEGATIVE ECG Data Attestation: I personally reviewed and interpreted this ECG as follows: Indication: weakness Rate (beats per minute): 64 Rhythm: normal sinus Findings: + other (normal intervals), + Q waves (lead 2), + ST depression (slight, in lateral), + T-wave inversion (AVL) and + left axis deviation Comparison ECG Date: from (10/17/14) Change: no significant change Blood Pressure Blood Pressure Findings: Elevated blood pressure Blood Pressure Disposition: further management by hospitalist YARELY Narrative The patient is a 78 year old white male w/ PMHx of HTN, s/p trigger finger repair, who presents to the ED w/ CC of an episode of rectal bleeding beginning this morning. Etiologies such as esophagitis, variceal bleed, [place]er[place]aves, [place] tear, gastritis, peptic ulcer disease, AVM, inflammatory bowel disease, ischemia, diverticulosis, colitis, malignancy, coagulopathy, thrombocytopenia, fissure, hemorrhoid, epistaxis , as well as others were entertained. Patient was seen and evaluated the bedside. The patient was related that he was having some rectal bleeding today. He did state that he was slightly lightheaded but denies any abdominal pain nausea vomiting. The patient did have a recent procedure for trigger finger of his left hand. The patient believes he was sedated and not intubated. He states that there were no complications yesterday. Patient's left hand is otherwise well perfused. Bandage was kept and placed at this time. The patient did relate that he was started on prophylactic antibiotics given his recent procedure. Given the patient's lack of pain believe the likelihood of diverticulitis or inflammatory bowel disease to be unlikely. The patient states that he did have a negative colonoscopy approximate 4-5 years ago. No prior history of colon malignancy. Patient does state he does have a history of hemorrhoids and the patient denies any recent issues with constipation. Patient did have blood work completed along with EKG was given IV fluids and did have a type and screen as well as a rectal exam performed. Patient's rectal exam did show some bright red blood but no dark tarry stool. The patient does not have any evidence of bleeding hemorrhoid externally. No fissures. Patient's blood counts are fairly unremarkable. I did discuss with the patient that this may be medication related given his recent antibiotic use. Again the patient has no abdominal pain. The patient was arranged to have outpatient gastroenterology follow-up. Just prior to discharge the patient did have another bloody bowel movement. Given this concern and difficulty with reassurance of the patient the family member I did discuss case with the on-call hospitalist who agreed to further evaluate treat the patient and trend the patient's H&H. Patient was admitted to the medicine medicine service. Impression & Plan Rectal bleeding Discharge Plan Visit Data Chief Complaint: GI Bleed Stated Complaint: BLOOD IN STOOL ED Provider: Harrison Long Discharge Problem: Rectal bleeding Patient Disposition: Being Evaluated by Hospitalist Condition: Good Prescriptions Prescriptions: No Action metoprolol succinate 50 mg Tablet Extended Release 24 Hr 50 mg PO QAM RF: 0 sumatriptan succinate 100 mg Tablet 1 dose PO UD PRN (Reason: Migraine Headache) RF: 0 quetiapine [Seroquel] 100 mg Tablet 100 mg PO HS RF: 0 amlodipine-benazepril [Lotrel] 5-20 mg Capsule 1 cap PO QAM RF: 0 pantoprazole 40 mg Tablet,Delayed Release (Dr/Ec) 40 mg PO QAM RF: 0 allopurinol 300 mg Tablet 150 mg PO QPM RF: 0 aripiprazole [Abilify] 2 mg Tablet 1 mg PO QAM RF: 0 venlafaxine 150 mg Tablet Extended Release 24hr 150 mg PO QAM RF: 0 testosterone cypionate [Depo-Testosterone] 200 mg/mL oil 1 dose subcut DIRECTED RF: 0 Referrals Referrals: Donita Henriquez PA-C [[facility]] - (You have an appointment at [facility] on November 28 at 11:30am. ) Noel Rogers DO [Primary Care Provider] - The estephaniaibe's documentation has been prepared under my direction and personally reviewed by me in its entirety. I confirm that the note above accurately reflects all work, treatment, procedures, and medical decision making performed by me.
[2018-11-22] MEDS ORDERED: ONDANSETRON INJ 2 MG/ML 2 ML VIAL IV PRN (16:15)
[2018-11-22] MEDS ORDERED: ACETAMINOPHEN 325 MG TAB PO PRN (16:15)
[2018-11-22 20:02] LABS: Cdiff Antigen Positive; Cdiff Toxin A+B Negative Cdiff Toxin (Negative)
[2018-11-22 20:08] LABS: Hematocrit (blood only) 43.1 % (42-52)
[2018-11-22] MEDS ORDERED: INFLUENZA ADMINISTRATION CHARGE ONE (20:30)
[2018-11-22] MEDS ORDERED: INFLUENZA VIRUS QUAD VACCINE 0.5 ML SYR IM ONE (20:30)
[2018-11-22] MEDS: NSS + 20MEQ KCL 20 MEQ/1,000 ML BAG IV SCH (20:34)
[2018-11-22] MEDS: ALLOPURINOL 300 MG TAB PO SCH (20:35)
[2018-11-22] MEDS: FAMOTIDINE 20 MG in SYRINGE 3 ML IV SCH (21:16)
[2018-11-22] MEDS: QUETIAPINE FUMARATE 100 MG TABLET PO SCH (22:06)
[2018-11-23] MEDS: RASPBERRY SYRUP 5 ML UDP PO SCH ×2 (00:34→06:09)
[2018-11-23] MEDS: VANCOMYCIN HCL 125 MG/2.5ML SOLN PO SCH ×2 (00:34→06:11)
[2018-11-23 04:37] LABS: Hematocrit (blood only) 39.1 % (42-52); Hemoglobin 13.2 g/dL (14.0-18.0)
[2018-11-23 04:59] LABS: BUN Creatinine Ratio 19.8 (10-20); Creatinine Clr Calc Pharmacy 61.2 ml/min; Est GFR (African American) 73.8; Est GFR (Non-African American) 63.7
[2018-11-23] MEDS: NSS + 20MEQ KCL 20 MEQ/1,000 ML BAG IV SCH ×2 (06:09→21:03)
[2018-11-23] MEDS: METOPROLOL SUCC 50MG EXT REL TAB PO SCH (08:49)
[2018-11-23] MEDS: FAMOTIDINE 20 MG in SYRINGE 3 ML IV SCH ×2 (08:49→20:19)
[2018-11-23] MEDS: VENLAFAXINE HCL XR 150 MG CAPXR PO SCH (08:49)
[2018-11-23] MEDS: ENALAPRIL MALEATE 10 MG TAB PO SCH (08:49)
[2018-11-23] MEDS: AMLODIPINE BESYLATE 5 MG TAB PO SCH (08:49)
[2018-11-23] MEDS ORDERED: ARIPIprazole 1 MG/ML ORAL SOLN 150 ML BTL PO SCH (09:00)
[2018-11-23] MEDS: ARIPIprazole 1 MG/ML ORAL SOLN 150 ML BTL PO SCH (09:10)
--- NOTE | 2018-11-23 09:53 | Gastrointestinal Consultation ---
Date of Consultation November 23, 2018 Assessment & Plan (1) GI bleed: (2) Melena: Pt is a 78 y.o male s/p trigger finger release surgery with recent NSAID use presenting with acute blood loss anemia and melena and positive C Diff gene with negative toxins A&B. 1. Keep NPO for now. 2. EGD for further evaluation by Dr. Yee today. 3. Continue Pepcid 20 mg IV BID. 4. Discontinue Vancomycin as C Diff testing not consistent with active Difficile infection. 5. Additional recommendations will be made pending results of testing. Supervising Physician Co-Signing Physician Notes Agree with DEIRDRE Boone as above Abd: Soft, NT, ND, +BS Continue current therapy Proceed with EGD now History of Present Illness Reason for Consultation: Dr. Morataya Requesting Physician: KELLEE Attending Physician: Jj Morataya, History of Present Illness Hugh Cruz is a 78 y.o male with a history of GERD , depression, gout and chronic back pain admitted to the hospital approximately 24 hours after having undergone hand surgery by Dr. Roy for a trigger finger release. Patient reports he took some Advil last night for management of pain and swelling. Patient also started taking oral Keflex as prescribed postoperatively. He is also on a daily low dose aspirin. States he began having dark and melanotic stools, some liquid in nature mixed with darker red blood. Concerned, he presented to the ER for further evaluation. On arrival, he was noted to have a H&H of 15.0 and 43.1. This has subsequently dropped to 13.2 and 39.1 this morning. He also did have stool studies to exclude enteric pathogens due to the loose nature of the stools. Cx is pending and C Diff testing revealed a positive C Diff gene but negative toxin A and B. He was started on oral Vancomycin in this regard. He is also on IV Pepcid. In regard to symptoms, he reports passing a loose black stool at 0830. Denies any SOB, HEAD, chest pain, palpitations, abdominal pain, n/v, hematemesis or other GI complaints. Allergies Allergy/AdvReac Type Severity Reaction Status Date / Time Iodinated Contrast- Oral and Allergy Mild RASH Verified 11/23/18 16:23 IV Dye Home Medications Home Medications Medication Instructions Recorded Confirmed Type allopurinol 150 mg PO QPM 11/01/18 11/22/18 History amlodipine-benazepril [Lotrel] 1 cap PO QAM 11/01/18 11/22/18 History aripiprazole [Abilify] 1 mg PO QAM 11/01/18 11/22/18 History metoprolol succinate 50 mg PO QAM 11/01/18 11/22/18 History pantoprazole 40 mg PO QAM 11/01/18 11/22/18 History quetiapine [Seroquel] 100 mg PO HS 11/01/18 11/22/18 History sumatriptan succinate 1 dose PO UD PRN 11/01/18 11/22/18 History venlafaxine 150 mg PO QAM 11/01/18 11/22/18 History testosterone cypionate 1 dose SUBCUT DIRECTED 11/22/18 11/22/18 History [Depo-Testosterone] Patient History Medical History Anxiety Chronic back pain Depression GERD (gastroesophageal reflux disease) Gout Hearing deficit BL SPICER Hypertension Surgical History H/O tooth extraction History of appendectomy History of bilateral inguinal hernia repair History of colonoscopy History of esophagogastroduodenoscopy (EGD) History of lumbar laminectomy History of repair of rotator cuff LT History of thumb surgery History of tonsillectomy Hx of cataract surgery Family History Father Family history of diabetes mellitus Mother Family hx of colon cancer Social History Preferred Language: [place] Communication Ability: Effective Middle Card Tender Required: No Beliefs That Will Affect Care: None Current Living Situation: Spouse Other Information That Helps Us Care for You: No Feels Safe at Home: Yes Safety Concerns: Feels Safe At This Time Smoking Status: Never smoker Do You Dip or Chew Tobacco: No Second Hand Exposure: No Tobacco Cessation Education Requested by Patient: No Hx Alcohol Use: Yes Alcohol type: beer, wine and hard liquor Hx Substance Use: No Review of Systems Review of Systems: All systems reviewed & are unremarkable except as noted in HPI & below Physical Exam Constitutional: WD/WN, vitals as above Eyes: EOM intact bilaterally Neck: normal appearance Respiratory: normal respiratory effort, lungs clear to auscultation Cardiovascular: Rate/Rhythm: regular rate and regular rhythm Gastrointestinal (Abdomen): Inspection/Auscultation: + hyperactive bowel sounds Percussion/Palpation: abdomen soft; abdomen nontender Musculoskeletal: left hand bandaged with [place] Skin: no rashes, warm and dry Psychiatric: A+Ox3, euthymic affect Results & Data Vital Signs (Past 12 Hours) Vital Signs Temp Pulse Resp BP BP Pulse Ox 11/23/18 07:22 36.7 C 69 18 156/97 H 94 11/22/18 23:58 36.6 C 86 16 109/70 93 Laboratory Results Abnormal lab results 11/22/18 11/22/18 11/22/18 Range/Units 10:02 10:02 10:05 Hgb (14.0-18.0) g/dL Hct (42-52) % RDW Std Deviation 49.3 H (36.4-46.3) fL RDW Coeff of Aisha 14.6 H (11.5-14.5) % MPV 11.2 H (7.4-10.4) fL Chloride 109 H (98-107) mmol/L Anion Gap 2.0 L (3-11) BUN 21 H (7-18) mg/dl Glucose 117 H (70-99) mg/dl Calcium (8.5-10.1) mg/dl ALT 91 H (12-78) U/L Urine Protein (Negative) Urine Ketones (Negative) Ur Leukocyte Esterase (Negative) Urine WBC (Auto) (0-5) /hpf U Epithel Cells (Auto) (0-5) /lpf Stl C. diff Tox B Gene (Neg) Crossmatch See Detail 11/22/18 11/22/18 11/23/18 Range/Units 11:35 17:00 04:25 Hgb 13.2 L (14.0-18.0) g/dL Hct 39.1 L (42-52) % RDW Std Deviation (36.4-46.3) fL RDW Coeff of Aisha (11.5-14.5) % MPV (7.4-10.4) fL Chloride (98-107) mmol/L Anion Gap (3-11) BUN (7-18) mg/dl Glucose (70-99) mg/dl Calcium (8.5-10.1) mg/dl ALT (12-78) U/L Urine Protein 2+ H (Negative) Urine Ketones Trace H (Negative) Ur Leukocyte Esterase Trace H (Negative) Urine WBC (Auto) 5-10 H (0-5) /hpf U Epithel Cells (Auto) 10-20 H (0-5) /lpf Stl C. diff Tox B Gene Positive Cdiff Gene A (Neg) Crossmatch 11/23/18 Range/Units 04:25 Hgb (14.0-18.0) g/dL Hct (42-52) % RDW Std Deviation (36.4-46.3) fL RDW Coeff of Aisha (11.5-14.5) % MPV (7.4-10.4) fL Chloride 112 H (98-107) mmol/L Anion Gap 2.0 L (3-11) BUN 22 H (7-18) mg/dl Glucose (70-99) mg/dl Calcium 8.0 L (8.5-10.1) mg/dl ALT (12-78) U/L Urine Protein (Negative) Urine Ketones (Negative) Ur Leukocyte Esterase (Negative) Urine WBC (Auto) (0-5) /hpf U Epithel Cells (Auto) (0-5) /lpf Stl C. diff Tox B Gene (Neg) Crossmatch
[2018-11-23 12:40] LABS: Hematocrit (blood only) 38.9 % (42-52); Hemoglobin 13.3 g/dL (14.0-18.0)
--- NOTE | 2018-11-23 16:34 | Anesthesiology Consultation ---
Date of Service November 23, 2018 Assessment & Plan (1) Encounter for pre-operative examination: Chart Review Chart Review: Acceptable Risk for Surgery and Patient NOT seen in Pre Admission Testing Consults Requested none NPO Date Last Intake of Fluids: 11/22/18 Time Last Intake of Fluids: 17:00 Date Last Intake of Solids: 11/22/18 Time Last Intake of Solids: 17:00 History Surgery Operation Date: 11/23/18 09:15 Proposed Procedures p Esophagogastroduodenoscopy Dr Joselito Chavez Case, DO Height/Weight Height: 6 ft Weight: 90.4 kg Allergies Allergy/AdvReac Type Severity Reaction Status Date / Time Iodinated Contrast- Oral and Allergy Mild RASH Verified 11/23/18 16:23 IV Dye Medications Home Medications Medication Instructions Recorded Confirmed Last Taken allopurinol 150 mg PO QPM 11/01/18 11/22/18 11/20/18 20:00 amlodipine-benazepril [Lotrel] 1 cap PO QAM 11/01/18 11/22/18 11/21/18 05:15 aripiprazole [Abilify] 1 mg PO QAM 11/01/18 11/22/18 11/21/18 05:15 metoprolol succinate 50 mg PO QAM 11/01/18 11/22/18 11/21/18 05:15 pantoprazole 40 mg PO QAM 11/01/18 11/22/18 11/21/18 05:15 quetiapine [Seroquel] 100 mg PO HS 11/01/18 11/22/18 11/20/18 20:00 sumatriptan succinate 1 dose PO UD PRN 11/01/18 11/22/18 11/17/18 venlafaxine 150 mg PO QAM 11/01/18 11/22/18 11/21/18 05:15 testosterone cypionate 1 dose SUBCUT DIRECTED 11/22/18 11/22/18 Unknown [Depo-Testosterone] Active Medications Generic Name Dose Route Start Last Admin Trade Name Freq PRN Reason Stop Dose Admin Allopurinol 150 mg 11/22/18 21:00 11/22/18 20:35 Zyloprim PO 12/22/18 20:59 150 mg QPM [facility] Administration Amlodipine Besylate 5 mg 11/23/18 09:00 11/23/18 08:49 Norvasc PO 12/23/18 08:59 5 mg QAM [facility] Administration Aripiprazole 1 mg 11/23/18 09:00 11/23/18 09:10 Abilify PO 12/23/18 08:59 1 mg QAM [facility] Administration Enalapril Maleate 20 mg 11/23/18 09:00 11/23/18 08:49 Vasotec PO 12/23/18 08:59 20 mg DAILY [facility] Administration Famotidine 20 mg/ Syringe 5 mls @ 2.5 mls/min 11/22/18 21:00 11/23/18 08:49 IV 12/22/18 20:59 2.5 mls/min BID ALISSON Administration Potassium Chloride/Sodium Chloride 20 meq in 1,000 mls @ 100 mls/hr 11/22/18 20:15 11/23/18 14:44 Normal Saline W/20 Meq Kcl IV 12/22/18 20:14 Infused .Q10H [facility] Infusion Metoprolol Succinate 50 mg 11/23/18 09:00 11/23/18 08:49 Toprol Xl PO 12/23/18 08:59 50 mg QAM [facility] Administration Quetiapine Fumarate 100 mg 11/22/18 21:00 11/22/18 22:06 Seroquel PO 12/22/18 20:59 100 mg HS AL[facility] Administration Venlafaxine HCl 150 mg 11/23/18 09:00 11/23/18 08:49 Effexor Extended Release PO 12/23/18 08:59 150 mg QAM [facility] Administration Past Medical History Medical History Anxiety Chronic back pain Depression GERD (gastroesophageal reflux disease) Gout Hearing deficit BL SPICER Hypertension Past Family History Family History Father Family history of diabetes mellitus Mother Family hx of colon cancer Past Surgical History Surgical History H/O tooth extraction History of appendectomy History of bilateral inguinal hernia repair History of colonoscopy History of esophagogastroduodenoscopy (EGD) History of lumbar laminectomy History of repair of rotator cuff LT History of thumb surgery History of tonsillectomy Hx of cataract surgery Social History Smoking Status: Never smoker Do You Dip or Chew Tobacco: No Hx Alcohol Use: Yes Alcohol type: beer, wine and hard liquor alcohol intake frequency: a few times a month Hx Substance Use: No substance use type: does not use Physical Exam Vital Signs Last Vital Signs Temp 36.9 C 11/23/18 16:24 Pulse 94 H 11/23/18 16:24 Resp 18 11/23/18 16:24 BP 157/103 H 11/23/18 16:24 Pulse Ox 95 11/23/18 16:24 Testing Laboratory Results 11/23/18 12:28 11/23/18 04:25 Blood Type A Positive 11/22/18 10:05 Antibody Screen NEGATIVE 11/22/18 10:05 PT 10.9 Seconds (9.0-12.0) 11/22/18 10:02 INR 1.1 (0.9-1.1) 11/22/18 10:02 APTT 27.3 Seconds (21.0-31.0) 11/22/18 10:02 Urine Color Dark Yellow 11/22/18 11:35 Urine Appearance Clear (Clear) 11/22/18 11:35 Urine pH 7.0 (4.5-7.5) 11/22/18 11:35 Ur Specific [place] 1.025 (1.000-1.030) 11/22/18 11:35 Urine Protein 2+ (Negative) H 11/22/18 11:35 Urine Glucose (UA) Negative (Negative) 11/22/18 11:35 Urine Ketones Trace (Negative) H 11/22/18 11:35 Urine Nitrite Negative (Negative) 11/22/18 11:35 Ur Leukocyte Esterase Trace (Negative) H 11/22/18 11:35 Urine WBC (Auto) 5-10 /hpf (0-5) H 11/22/18 11:35 Urine RBC (Auto) 0-4 /hpf (0-4) 11/22/18 11:35 U Hyaline Cast (Auto) 1-5 /lpf (0-5) 11/22/18 11:35 U Epithel Cells (Auto) 10-20 /lpf (0-5) H 11/22/18 11:35 Urine Bacteria (Auto) Negative (Negative) 11/22/18 11:35 11/22/18 17:00 Shiga Toxin Test - Preliminary Stool Stool Culture - Preliminary No Salmonella isolated to date, No Shigella isolated to date, No Campylobacter jejuni isolated to date.
[2018-11-23] MEDS ORDERED: ATROPINE SULFATE 0.1 MG/ML 10ML SYR IV PRN (16:40)
[2018-11-23] MEDS ORDERED: ePHEDrine sulfate 50 MG/ML AMP IV PRN (16:40)
--- NOTE | 2018-11-23 17:00 | Hospitalist Progress Note ---
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, culture negative Pepcid IV (2) Acute blood loss anemia: Hb down to 13 from 16 feeling weak will transfuse if Hb < 8 or if hypotensive (3) Hypertension: continue Lotrel and metoprolol (4) Depression: continue Abilify and Effexor (5) S/P trigger finger release: apply ice to left hand q3 hours Subjective patient with several more loose, dark, bloody stools feeling much more weak today Hb down to 13 but repeat was also 13, will check tonight C diff gene pos but toxin negative, so he is carrier appreciate GI consult, plan for EGD today since he continues to bleed and he is feeling weak, will hold on d/c, he agrees with plan Review of Systems Review of Systems: All systems reviewed & are unremarkable except as noted in HPI & below Constitutional: + fatigue and + weakness Gastrointestinal: + diarrhea/loose stools and + blood in stools; no abdominal pain, no nausea and no vomiting Physical Exam Constitutional: WD/WN, vitals as above Eyes: PERRL, conjunctivae normal, anicteric sclerae ENMT: external ear and nose normal, oropharynx normal Neck: trachea midline, no thyromegaly Respiratory: normal respiratory effort, lungs clear to auscultation Cardiovascular: RRR, no murmur, no edema Gastrointestinal (Abdomen): normal bowel sounds, soft, nontender, no hepatosplenomegaly Musculoskeletal: no cyanosis or clubbing, extremities motor strength 5/5 Skin: no rashes, warm and dry Neurologic: patellar DTR's 2+ bilat, sensation intact and PERRL, EOMI, accommodation nl, no face palsy, no dysarthria Psychiatric: A+Ox3, euthymic affect Lymphatic: no cervical or axillary lymphadenopathy Results & Data Vital Signs (Past 12 Hours) Vital Signs Temp Pulse Resp BP BP Pulse Ox 11/23/18 16:24 36.9 C 94 H 18 157/103 H 95 11/23/18 15:27 36.8 C 82 18 144/95 H 93 11/23/18 07:22 36.7 C 69 18 156/97 H 94 Laboratory Results Laboratory Results - last 24 hr 11/22/18 11/22/18 11/23/18 17:00 20:02 04:25 Hgb 15.0 13.2 L Hct 43.1 39.1 L Sodium Potassium Chloride Carbon Dioxide Anion Gap BUN Creatinine Est Cr Clr Drug Dosing Est GFR ( Amer) Est GFR (Non-Af Amer) BUN/Creatinine Ratio Glucose Calcium Stl C. diff Tox B Gene Positive Cdiff Gene A Stl C.difficile Tox A&B Negative Cdiff Toxin 11/23/18 11/23/18 04:25 12:28 Hgb 13.3 L Hct 38.9 L Sodium 143 Potassium 4.0 Chloride 112 H Carbon Dioxide 29 Anion Gap 2.0 L BUN 22 H Creatinine 1.11 Est Cr Clr Drug Dosing 61.2 Est GFR ( Amer) 73.8 Est GFR (Non-Af Amer) 63.7 BUN/Creatinine Ratio 19.8 Glucose 90 Calcium 8.0 L Stl C. diff Tox B Gene Stl C.difficile Tox A&B Medications Administered Current Inpatient Medications Acetaminophen (Tylenol) 650 mg PO Q4H PRN PRN Reason: pain/fever Stop: 12/22/18 16:14 Allopurinol (Zyloprim) 150 mg PO QPM [facility] Stop: 12/22/18 20:59 Last Admin: 11/22/18 20:35 Dose: 150 mg Documented by: Amlodipine Besylate (Norvasc) 5 mg PO QAM [facility] Stop: 12/23/18 08:59 Last Admin: 11/23/18 08:49 Dose: 5 mg Documented by: Aripiprazole (Abilify) 1 mg PO QAM [facility] Stop: 12/23/18 08:59 Last Admin: 11/23/18 09:10 Dose: 1 mg Documented by: Atropine Sulfate (Atropine Sulfate) 0.5 mg IV Q1M PRN PRN Reason: PACU Use-HR<40 &/or Bradycardi Stop: 11/23/18 21:40 Enalapril Maleate (Vasotec) 20 mg PO DAILY [facility] Stop: 12/23/18 08:59 Last Admin: 11/23/18 08:49 Dose: 20 mg Documented by: Ephedrine Sulfate (Ephedrine Sulfate) 5 mg IV Q5M PRN PRN Reason: PACU Use Only-SBP<90 mmHg Stop: 11/23/18 21:40 Famotidine 20 mg/ Syringe 5 mls @ 2.5 mls/min IV BID [facility] Stop: 12/22/18 20:59 Last Admin: 11/23/18 08:49 Dose: 2.5 mls/min Documented by: Potassium Chloride/Sodium Chloride (Normal Saline W/20 Meq Kcl) 20 meq in 1,000 mls @ 100 mls/hr IV .Q10H [facility] Stop: 12/22/18 20:14 Last Infusion: 11/23/18 14:44 Dose: Infused Documented by: Metoprolol Succinate (Toprol Xl) 50 mg PO QAM [facility] Stop: 12/23/18 08:59 Last Admin: 11/23/18 08:49 Dose: 50 mg Documented by: Ondansetron HCl (Zofran) 4 mg IV Q6H PRN PRN Reason: Nausea Stop: 12/22/18 16:14 Quetiapine Fumarate (Seroquel) 100 mg PO HS [facility] Stop: 12/22/18 20:59 Last Admin: 11/22/18 22:06 Dose: 100 mg Documented by: Venlafaxine HCl (Effexor Extended Release) 150 mg PO QAM [facility] Stop: 12/23/18 08:59 Last Admin: 11/23/18 08:49 Dose: 150 mg Documented by:
[2018-11-23] MEDS ORDERED: PROPOFOL IV EMULSION 10 MG/ML 20 ML VIAL IV ONE (17:07)
[2018-11-23] MEDS ORDERED: LIDOCAINE HCL 2% 2 ML VIAL/AMP(20MG/ML) INFIL ONE (17:07)
--- NOTE | 2018-11-23 17:21 | GI REPORT ---
Patient Name: Hugh Cruz Procedure Date: 11/23/2018 4:57 PM Date of : 1940 Admit Type: Inpatient Age: 78 Gender: Male Attending MD: Jamel Yee DO Procedure: Upper GI endoscopy Providers: Jamel Yee DO Referring MD: Jj Morataya Indications: Acute post hemorrhagic anemia Medicines: Monitored Anesthesia Care Complications: No immediate complications. Estimated Blood Loss: Estimated blood loss: none. Procedure: Pre-Anesthesia Assessment: - Prior to the procedure, a History and Physical was performed, and patient medications and allergies were reviewed. The patient's tolerance of previous anesthesia was also reviewed. The risks and benefits of the procedure and the sedation options and risks were discussed with the patient. All questions were answered, and informed consent was obtained. Prior Anticoagulants: The patient has taken aspirin, last dose was 2 days prior to procedure. ASA Grade Assessment: III - A patient with severe systemic disease. After reviewing the risks and benefits, the patient was deemed in satisfactory condition to undergo the procedure. After obtaining informed consent, the endoscope was passed under direct vision. Throughout the procedure, the patient's blood pressure, pulse, and oxygen saturations were monitored continuously. The Endoscope was introduced through the mouth, and advanced to the second part of duodenum. The upper GI endoscopy was accomplished without difficulty. The patient tolerated the procedure well. Findings: The esophagus was normal. A small hiatal hernia was present. The examined duodenum was normal. Impression: - Normal esophagus. - Small hiatal hernia. - Normal examined duodenum. - No specimens collected. Recommendation: - Return patient to [facility] for ongoing care. - Clear liquid diet today. - Perform a colonoscopy tomorrow. - Continue present medications. Jamel Yee DO 11/23/2018 5:20:53 PM This report has been signed electronically. Note Initiated On: 11/23/2018 4:57 PM Number of Addenda: 0 I attest to the content of the Intraoperative Record and orders documented therein, exceptions below {[id number]}
--- NOTE | 2018-11-23 17:44 | Anesthesiology Progress Note ---
Date of Service November 23, 2018 Anesthesia Post Procedure Vital Signs Vital Signs: Temp Pulse Resp BP BP Pulse Ox 11/23/18 17:34 82 16 99/76 L 95 11/23/18 17:20 85 16 104/69 96 11/23/18 16:24 36.9 C 94 H 18 157/103 H 95 11/23/18 15:27 36.8 C 82 18 144/95 H 93 11/23/18 07:22 36.7 C 69 18 156/97 H 94 11/22/18 23:58 36.6 C 86 16 109/70 93 Notes Mental Status: alert / awake / arousable and participated in evaluation Nausea / Vomiting: adequately controlled Pain: adequately controlled Airway Patency, RR, SpO2: stable & adequate BP & HR: stable & adequate Hydration State: stable & adequate Anesthetic Complications: no major complications apparent and Pt Satisfied with anesthetic care
[2018-11-23] MEDS ORDERED: LAVAGE SOLUTION 4000ML PO SCH (20:00)
[2018-11-23] MEDS: ALLOPURINOL 300 MG TAB PO SCH (21:08)
[2018-11-23 21:27] LABS: Hematocrit (blood only) 34.3 % (42-52); Hemoglobin 11.8 g/dL (14.0-18.0)
[2018-11-23] MEDS: QUETIAPINE FUMARATE 100 MG TABLET PO SCH (23:49)
[2018-11-24] MEDS: NSS + 20MEQ KCL 20 MEQ/1,000 ML BAG IV SCH ×2 (05:50→17:45)
[2018-11-24] MEDS: FAMOTIDINE 20 MG in SYRINGE 3 ML IV SCH ×2 (08:29→20:24)
[2018-11-24] MEDS: VENLAFAXINE HCL XR 150 MG CAPXR PO SCH (08:29)
[2018-11-24] MEDS: ENALAPRIL MALEATE 10 MG TAB PO SCH (08:29)
[2018-11-24] MEDS: ARIPIprazole 1 MG/ML ORAL SOLN 150 ML BTL PO SCH (08:29)
[2018-11-24] MEDS: AMLODIPINE BESYLATE 5 MG TAB PO SCH (08:29)
[2018-11-24] MEDS: METOPROLOL SUCC 50MG EXT REL TAB PO SCH (08:29)
--- NOTE | 2018-11-24 09:50 | History & Physical Bridge Note ---
Date of Service November 24, 2018 History & Physical Bridge Note I have examined the patient, reviewed the History & Physical and in the interval since the performance of the History & Physical I have noted the following changes of clinical significance: Patient has had a drop in H&H in the past [address] Morataya. H&H today noted to be 11.8 and 34.3. He denies any abdominal pains or other GI complaints. Did have an emesis last night with bowel prep solution. No chest pain, palpitations or shortness of breath. For colonoscopy today. General: A&Ox3. VSS reviewed and as follows: BP 136/78, Pulse 93, Resp 16, Temp 36.8 and O2 sat 95% on RA. Respiratory: Lungs CTA bilaterally. Normal pattern. Cardiovascular: RRR. No murmurs, rubs or gallops. Gastrointestinal: Hyperactive bowel sounds. Soft, nontender. Plan: Proceed with colonoscopy. Keep NPO for now. Additional recommendations pending results of testing. Supervising Physician Co-Signing Physician Notes Agree with DEIRDRE Boone as above Abd: Soft, NT, ND, +BS Proceed with colonoscopy today Further recommendations to follow
[2018-11-24] MEDS ORDERED: SOD PHOSPHATE/SOD BIPHOSPHATE ENEMA 132 ML BTL PR STA (11:16)
[2018-11-24] MEDS ORDERED: SOD PHOSPHATE/SOD BIPHOSPHATE ENEMA 132 ML BTL PR ONE (11:29)
--- NOTE | 2018-11-24 11:59 | Anesthesiology Consultation ---
Date of Service November 24, 2018 Assessment & Plan (1) Encounter for pre-operative examination: Chart Review Chart Review: Acceptable Risk for Surgery NPO Date Last Intake of Fluids: 11/23/18 Time Last Intake of Fluids: 11:59 Date Last Intake of Solids: 11/22/18 Time Last Intake of Solids: 11:55 History Surgery Operation Date: 11/23/18 09:15 Proposed Procedures p Esophagogastroduodenoscopy Dr Joselito Chavez Case, DO Operation Date: 11/24/18 08:30 Proposed Procedures p Colonoscopy Dr. Joselito Chavez Case, DO Height/Weight Height: 6 ft Weight: 90.4 kg Allergies Allergy/AdvReac Type Severity Reaction Status Date / Time Iodinated Contrast- Oral and Allergy Mild RASH Verified 11/23/18 16:23 IV Dye Medications Home Medications Medication Instructions Recorded Confirmed Last Taken allopurinol 150 mg PO QPM 11/01/18 11/22/18 11/20/18 20:00 amlodipine-benazepril [Lotrel] 1 cap PO QAM 11/01/18 11/22/18 11/21/18 05:15 aripiprazole [Abilify] 1 mg PO QAM 11/01/18 11/22/18 11/21/18 05:15 metoprolol succinate 50 mg PO QAM 11/01/18 11/22/18 11/21/18 05:15 pantoprazole 40 mg PO QAM 11/01/18 11/22/18 11/21/18 05:15 quetiapine [Seroquel] 100 mg PO HS 11/01/18 11/22/18 11/20/18 20:00 sumatriptan succinate 1 dose PO UD PRN 11/01/18 11/22/18 11/17/18 venlafaxine 150 mg PO QAM 11/01/18 11/22/18 11/21/18 05:15 testosterone cypionate 1 dose SUBCUT DIRECTED 11/22/18 11/22/18 Unknown [Depo-Testosterone] Active Medications Generic Name Dose Route Start Last Admin Trade Name Freq PRN Reason Stop Dose Admin Allopurinol 150 mg 11/22/18 21:00 11/23/18 21:08 Zyloprim PO 12/22/18 20:59 150 mg QPM [facility] Administration Amlodipine Besylate 5 mg 11/23/18 09:00 11/24/18 08:29 Norvasc PO 12/23/18 08:59 5 mg QAM [facility] Administration Aripiprazole 1 mg 11/23/18 09:00 11/24/18 08:29 Abilify PO 12/23/18 08:59 1 mg QAM [facility] Administration Enalapril Maleate 20 mg 11/23/18 09:00 11/24/18 08:29 Vasotec PO 12/23/18 08:59 20 mg DAILY [facility] Administration Famotidine 20 mg/ Syringe 5 mls @ 2.5 mls/min 11/22/18 21:00 11/24/18 08:29 IV 12/22/18 20:59 2.5 mls/min BID [facility] Administration Potassium Chloride/Sodium Chloride 20 meq in 1,000 mls @ 100 mls/hr 11/22/18 20:15 11/24/18 05:50 Normal Saline W/20 Meq Kcl IV 12/22/18 20:14 100 mls/hr .Q10H [facility] Administration Metoprolol Succinate 50 mg 11/23/18 09:00 11/24/18 08:29 Toprol Xl PO 12/23/18 08:59 50 mg QAM [facility] Administration Ondansetron HCl 4 mg 11/22/18 16:15 11/23/18 21:46 Zofran IV 12/22/18 16:14 4 mg Q6H PRN Administration Nausea Quetiapine Fumarate 100 mg 11/22/18 21:00 11/23/18 23:49 Seroquel PO 12/22/18 20:59 100 mg HS [facility] Administration Venlafaxine HCl 150 mg 11/23/18 09:00 11/24/18 08:29 Effexor Extended Release PO 12/23/18 08:59 150 mg QAM [facility] Administration Beta Ольга Beta Ольга Taken Within 24 Hours: Yes Past Medical History Medical History Anxiety Chronic back pain Depression GERD (gastroesophageal reflux disease) Gout Hearing deficit BL SPICER Hypertension Past Family History Family History Father Family history of diabetes mellitus Mother Family hx of colon cancer Past Surgical History Surgical History H/O tooth extraction History of appendectomy History of bilateral inguinal hernia repair History of colonoscopy History of esophagogastroduodenoscopy (EGD) History of lumbar laminectomy History of repair of rotator cuff LT History of thumb surgery History of tonsillectomy Hx of cataract surgery Social History Smoking Status: Never smoker Do You Dip or Chew Tobacco: No Hx Alcohol Use: Yes Alcohol type: beer, wine and hard liquor alcohol intake frequency: a few times a month Hx Substance Use: No substance use type: does not use Physical Exam Vital Signs Last Vital Signs Temp 36.8 C 11/24/18 07:35 Pulse 93 H 11/24/18 07:35 Resp 16 11/24/18 07:35 BP 136/78 11/24/18 07:35 Pulse Ox 95 11/24/18 07:35 Testing Electrocardiogram Date: 11/22/18 Findings: + NSR @ (64 incomplete RBBB) and + NSST changes Laboratory Results 11/23/18 21:01 11/23/18 04:25 Blood Type A Positive 11/22/18 10:05 Antibody Screen NEGATIVE 11/22/18 10:05 PT 10.9 Seconds (9.0-12.0) 11/22/18 10:02 INR 1.1 (0.9-1.1) 11/22/18 10:02 APTT 27.3 Seconds (21.0-31.0) 11/22/18 10:02 Urine Color Dark Yellow 11/22/18 11:35 Urine Appearance Clear (Clear) 11/22/18 11:35 Urine pH 7.0 (4.5-7.5) 11/22/18 11:35 Ur Specific [place] 1.025 (1.000-1.030) 11/22/18 11:35 Urine Protein 2+ (Negative) H 11/22/18 11:35 Urine Glucose (UA) Negative (Negative) 11/22/18 11:35 Urine Ketones Trace (Negative) H 11/22/18 11:35 Urine Nitrite Negative (Negative) 11/22/18 11:35 Ur Leukocyte Esterase Trace (Negative) H 11/22/18 11:35 Urine WBC (Auto) 5-10 /hpf (0-5) H 11/22/18 11:35 Urine RBC (Auto) 0-4 /hpf (0-4) 11/22/18 11:35 U Hyaline Cast (Auto) 1-5 /lpf (0-5) 11/22/18 11:35 U Epithel Cells (Auto) 10-20 /lpf (0-5) H 11/22/18 11:35 Urine Bacteria (Auto) Negative (Negative) 11/22/18 11:35 11/22/18 17:00 Shiga Toxin Test - Preliminary Stool Stool Culture - Preliminary No Salmonella isolated to date, No Shigella isolated to date, No Campylobacter jejuni isolated to date.
[2018-11-24] MEDS ORDERED: PROPOFOL IV EMULSION 10 MG/ML 20 ML VIAL IV ONE (14:07)
[2018-11-24] MEDS ORDERED: LIDOCAINE HCL 2% 2 ML VIAL/AMP(20MG/ML) INFIL ONE (14:07)
--- NOTE | 2018-11-24 14:16 | GI REPORT ---
Patient Name: Hugh Cruz Procedure Date: 11/24/2018 1:37 PM Date of : 1940 Admit Type: Inpatient Age: 78 Gender: Male Attending MD: Jamel Yee DO Procedure: Colonoscopy Providers: Jamel Yee DO Referring MD: Jj Morataya Indications: Acute post hemorrhagic anemia Medicines: Monitored Anesthesia Care Complications: No immediate complications. Estimated Blood Loss: Estimated blood loss: none. Procedure: Pre-Anesthesia Assessment: - Prior to the procedure, a History and Physical was performed, and patient medications and allergies were reviewed. The patient's tolerance of previous anesthesia was also reviewed. The risks and benefits of the procedure and the sedation options and risks were discussed with the patient. All questions were answered, and informed consent was obtained. Prior Anticoagulants: The patient has taken aspirin, last dose was 3 days prior to procedure. ASA Grade Assessment: II - A patient with mild systemic disease. After reviewing the risks and benefits, the patient was deemed in satisfactory condition to undergo the procedure. After I obtained informed consent, the scope was passed under direct vision. Throughout the procedure, the patient's blood pressure, pulse, and oxygen saturations were monitored continuously. The scope was introduced through the anus and advanced to the terminal ileum. The colonoscopy was performed without difficulty. The patient tolerated the procedure well. The quality of the bowel preparation was good. The terminal ileum, ileocecal valve, appendiceal orifice, and rectum were photographed. Findings: The perianal and digital rectal examinations were normal. Hematin (altered blood/tcoeef-ceiqxy-uouw material) was found in the rectum, in the sigmoid colon, in the descending colon and in the transverse colon. Multiple small and large-mouthed diverticula were found in the sigmoid colon and descending colon. Non-bleeding internal hemorrhoids were found during retroflexion. The hemorrhoids were medium-sized. Impression: - Blood in the rectum, in the sigmoid colon, in the descending colon and in the transverse colon. - Diverticulosis in the sigmoid colon and in the descending colon. - Non-bleeding internal hemorrhoids. - No specimens collected. Recommendation: - Return patient to [facility] for ongoing care. - Clear liquid diet. - Discussed case with Dr. Morataya. If patient has further bleeding, recommend evaluation by Interventional radiology at tertiary center. Jamel Yee DO 11/24/2018 2:16:45 PM This report has been signed electronically. Note Initiated On: 11/24/2018 1:37 PM Number of Addenda: 0 I attest to the content of the Intraoperative Record and orders documented therein, exceptions below {[id number]}
--- NOTE | 2018-11-24 14:22 | Anesthesiology Progress Note ---
Date of Service November 24, 2018 Anesthesia Post Procedure Vital Signs Vital Signs: Temp Pulse Pulse Resp BP BP Pulse Ox 11/24/18 13:26 36.7 C 80 20 L 20 135/73 93 11/24/18 07:35 36.8 C 93 H 16 136/78 95 11/23/18 23:05 36.7 C 89 14 127/82 96 11/23/18 18:13 36.8 C 78 18 147/83 H 95 11/23/18 17:50 79 18 114/72 97 11/23/18 17:35 82 16 99/76 L 95 11/23/18 17:20 85 16 104/69 96 11/23/18 16:24 36.9 C 94 H 18 157/103 H 95 11/23/18 15:27 36.8 C 82 18 144/95 H 93 Notes Mental Status: alert / awake / arousable Patient Amnestic to Procedure: Yes Nausea / Vomiting: adequately controlled Pain: adequately controlled Airway Patency, RR, SpO2: stable & adequate BP & HR: stable & adequate Hydration State: stable & adequate Anesthetic Complications: no major complications apparent
[2018-11-24] MEDS: ALLOPURINOL 300 MG TAB PO SCH (20:23)
--- NOTE | 2018-11-24 21:55 | Hospitalist Progress Note ---
Date of Service November 24, 2018 Assessment & Plan (1) GI bleed: several large, dark bloody bowel movements, mixed with liquid stool started morning of 11/22 no history of this no abdominal pain, no hematemesis Hb stable and BP stable on admission Hb dropped from 16 to 11 no further bleeding today EGD normal on 11/23 colonoscopy 11/24 with some blood in left side of colon and diverticula, no blood in ascending colon no active bleeding d/w Dr. Yee, follow closely for worsening bleeding, would likely need to go to tertiary care for IR embolization if he rebleeds no discharge today (2) Acute blood loss anemia: Hb down to 11 from 16 feeling weak will transfuse if Hb < 8 or if hypotensive follow H/H (3) Hypertension: continue Lotrel and metoprolol (4) Depression: continue Abilify and Effexor (5) S/P trigger finger release: apply ice to left hand q3 hours Subjective patient felt better in the morning moving bowels less, much less blood colonoscopy showed some old blood in the descending colon there was no blood in ascending colon discussed with Dr. Yee, will watch for further bleeding revisited patient in the evening after scope, he was feeling well no further bleeding discussed with he and his that likely diverticular bleed but not sure if he bleeds would need to go to tertiary care, he understood Review of Systems Review of Systems: All systems reviewed & are unremarkable except as noted in HPI & below Constitutional: + fatigue and + weakness Gastrointestinal: + diarrhea/loose stools and + blood in stools (much less then the previous 24 hours) Physical Exam 2 Constitutional: WD/WN, vitals as above Eyes: PERRL, conjunctivae normal, anicteric sclerae ENMT: external ear and nose normal, oropharynx normal Neck: trachea midline, no thyromegaly Respiratory: normal respiratory effort, lungs clear to auscultation Cardiovascular: RRR, no murmur, no edema Gastrointestinal (Abdomen): normal bowel sounds, soft, nontender, no hepatosplenomegaly Musculoskeletal: no cyanosis or clubbing, extremities motor strength 5/5 Skin: no rashes, warm and dry Neurologic: patellar DTR's 2+ bilat, sensation intact and PERRL, EOMI, accommodation nl, no face palsy, no dysarthria Psychiatric: A+Ox3, euthymic affect Lymphatic: no cervical or axillary lymphadenopathy Results & Data Vital Signs (Past 12 Hours) Vital Signs Temp Pulse Pulse Resp BP Pulse Ox 11/24/18 15:38 36.5 C 79 18 138/74 96 11/24/18 15:25 36.5 C 78 18 138/74 94 11/24/18 14:57 67 16 136/74 95 11/24/18 14:39 71 16 128/72 96 11/24/18 14:22 69 16 121/67 96 11/24/18 13:26 36.7 C 80 20 L 20 135/73 93 Medications Administered Current Inpatient Medications Acetaminophen (Tylenol) 650 mg PO Q4H PRN PRN Reason: pain/fever Stop: 12/22/18 16:14 Allopurinol (Zyloprim) 150 mg PO QPM [facility] Stop: 12/22/18 20:59 Last Admin: 11/24/18 20:23 Dose: 150 mg Documented by: Amlodipine Besylate (Norvasc) 5 mg PO QAM [facility] Stop: 12/23/18 08:59 Last Admin: 11/24/18 08:29 Dose: 5 mg Documented by: Aripiprazole (Abilify) 1 mg PO QAM [facility] Stop: 12/23/18 08:59 Last Admin: 11/24/18 08:29 Dose: 1 mg Documented by: Enalapril Maleate (Vasotec) 20 mg PO DAILY [facility] Stop: 12/23/18 08:59 Last Admin: 11/24/18 08:29 Dose: 20 mg Documented by: Famotidine 20 mg/ Syringe 5 mls @ 2.5 mls/min IV BID [facility] Stop: 12/22/18 20:59 Last Admin: 11/24/18 20:24 Dose: 2.5 mls/min Documented by: Potassium Chloride/Sodium Chloride (Normal Saline W/20 Meq Kcl) 20 meq in 1,000 mls @ 100 mls/hr IV .Q10H [facility] Stop: 12/22/18 20:14 Last Admin: 11/24/18 17:45 Dose: 100 mls/hr Documented by: Metoprolol Succinate (Toprol Xl) 50 mg PO QAM [facility] Stop: 12/23/18 08:59 Last Admin: 11/24/18 08:29 Dose: 50 mg Documented by: Ondansetron HCl (Zofran) 4 mg IV Q6H PRN PRN Reason: Nausea Stop: 12/22/18 16:14 Last Admin: 11/23/18 21:46 Dose: 4 mg Documented by: Quetiapine Fumarate (Seroquel) 100 mg PO [facility] Stop: 12/22/18 20:59 Last Admin: 11/23/18 23:49 Dose: 100 mg Documented by: Venlafaxine HCl (Effexor Extended Release) 150 mg PO [facility] Stop: 12/23/18 08:59 Last Admin: 11/24/18 08:29 Dose: 150 mg Documented by:
[2018-11-24] MEDS: QUETIAPINE FUMARATE 100 MG TABLET PO SCH (22:43)
[2018-11-25] MEDS: NSS + 20MEQ KCL 20 MEQ/1,000 ML BAG IV SCH ×2 (03:45→16:40)
[2018-11-25 09:12] LABS: Hemoglobin 10.7 g/dL (14.0-18.0)
[2018-11-25] MEDS: ARIPIprazole 1 MG/ML ORAL SOLN 150 ML BTL PO SCH (09:41)
[2018-11-25] MEDS: METOPROLOL SUCC 50MG EXT REL TAB PO SCH (09:41)
[2018-11-25] MEDS: AMLODIPINE BESYLATE 5 MG TAB PO SCH (09:41)
[2018-11-25] MEDS: ENALAPRIL MALEATE 10 MG TAB PO SCH (09:42)
[2018-11-25] MEDS: VENLAFAXINE HCL XR 150 MG CAPXR PO SCH (09:42)
[2018-11-25] MEDS: FAMOTIDINE 20 MG in SYRINGE 3 ML IV SCH (10:14)
--- NOTE | 2018-11-25 14:03 | Hospitalist Progress Note ---
Date of Service November 25, 2018 Assessment & Plan (1) GI bleed: several large, dark bloody bowel movements, mixed with liquid stool started morning of 11/22 no history of this no abdominal pain, no hematemesis Hb stable and BP stable on admission Hb dropped from 16 to 11.8 Hb is 10.7 today which is a 1gm drop in 36 hours no signs of melena for 36 hours EGD normal on 11/23 colonoscopy 11/24 with some blood in left side of colon and diverticula, no blood in ascending colon no active bleeding d/w Dr. Yee, follow closely for worsening bleeding, likely a resolved diverticular bleed but not 100% sure if he would rebleed he would need tertiary care for IR embolization if he does not bleed by tomorrow morning would send him home should return to ED if he would have bleeding at home (2) Acute blood loss anemia: 16 on day of admission, slowly drifted down Hb down to 10.7 today, BP elevated, HR stable repeat tomorrow (3) Hypertension: continue Lotrel and metoprolol (4) Depression: continue Abilify and Effexor (5) S/P trigger finger release: apply ice to left hand q3 hours Subjective patient feeling well today, more energy, more of an appetite tolerating regular food he moved bowels, no blood Hb down slightly to 10.7 discussed plan, explained diverticular bleed, or at least suspected diverticular bleed will observe another 24 hours for bleeding and will repeat H/H in the morning if no bleeding and H/H stable can go home no chest pain, no dyspnea, no light headedness Review of Systems Review of Systems: All systems reviewed & are unremarkable except as noted in HPI & below Gastrointestinal: no abdominal pain, no nausea, no vomiting, no constipation, no diarrhea/loose stools, no blood in stools and no melena Physical Exam Constitutional: WD/WN, vitals as above Eyes: PERRL, conjunctivae normal, anicteric sclerae ENMT: external ear and nose normal, oropharynx normal Neck: trachea midline, no thyromegaly Respiratory: normal respiratory effort, lungs clear to auscultation Cardiovascular: RRR, no murmur, no edema Gastrointestinal (Abdomen): normal bowel sounds, soft, nontender, no hepatosplenomegaly Musculoskeletal: no cyanosis or clubbing, extremities motor strength 5/5 Skin: no rashes, warm and dry Neurologic: patellar DTR's 2+ bilat, sensation intact and PERRL, EOMI, accommodation nl, no face palsy, no dysarthria Psychiatric: A+Ox3, euthymic affect Lymphatic: no cervical or axillary lymphadenopathy Results & Data Vital Signs (Past 12 Hours) Vital Signs Temp Pulse Resp BP Pulse Ox 11/25/18 12:07 36.9 C 68 16 137/91 96 11/25/18 07:35 36.7 C 80 16 150/84 H 98 Laboratory Results Laboratory Results - last 24 hr 11/22/18 11/25/18 10:05 08:59 Hgb 10.7 L Hct 32.0 L Crossmatch See Detail Medications Administered Current Inpatient Medications Acetaminophen (Tylenol) 650 mg PO Q4H PRN PRN Reason: pain/fever Stop: 12/22/18 16:14 Allopurinol (Zyloprim) 150 mg PO QPM [facility] Stop: 12/22/18 20:59 Last Admin: 11/24/18 20:23 Dose: 150 mg Documented by: [facility]) [facility] Stop: 12/23/18 08:59 Last Admin: 11/25/18 09:41 Dose: 5 mg Documented by: Aripiprazole (Abilify) [facility] [place] Stop: 12/23/18 08:59 Last Admin: 11/25/18 09:41 Dose: 1 mg Documented by: Enalapril Maleate (Vasotec) 20 mg PO DAILY [facility] Stop: 12/23/18 08:59 Last Admin: 11/25/18 09:42 Dose: 20 mg Documented by: Metoprolol Succinate ([facility]rol Xl) [facility] [place] Stop: 12/23/18 08:59 Last Admin: 11/25/18 09:41 Dose: 50 mg Documented by: Ondansetron HCl (Zofran) 4 mg IV Q6H PRN PRN Reason: Nausea Stop: 12/22/18 16:14 Last Admin: 11/23/18 21:46 Dose: 4 mg Documented by: Quetiapine Fumarate (Seroquel) 100 mg PO [facility] Stop: 12/22/18 20:59 Last Admin: 11/24/18 22:43 Dose: 100 mg Documented by: Venlafaxine HCl (Effexor Extended Release) 150 mg PO QAM [facility] Stop: 12/23/18 08:59 Last Admin: 11/25/18 09:42 Dose: 150 mg Documented by:
[2018-11-25] MEDS: ALLOPURINOL 300 MG TAB PO SCH (20:33)
[2018-11-25] MEDS: QUETIAPINE FUMARATE 100 MG TABLET PO SCH (22:36)
[2018-11-26 07:48] LABS: Hematocrit (blood only) 29.7 % (42-52); Hemoglobin 9.9 g/dL (14.0-18.0)
[2018-11-26] MEDS: METOPROLOL SUCC 50MG EXT REL TAB PO SCH (09:16)
[2018-11-26] MEDS: ARIPIprazole 1 MG/ML ORAL SOLN 150 ML BTL PO SCH (09:16)
[2018-11-26] MEDS: VENLAFAXINE HCL XR 150 MG CAPXR PO SCH (09:16)
[2018-11-26] MEDS: ENALAPRIL MALEATE 10 MG TAB PO SCH (09:17)
[2018-11-26] MEDS: AMLODIPINE BESYLATE 5 MG TAB PO SCH (09:18)
[2018-11-26 12:07] LABS: Hematocrit (blood only) 29.6 % (42-52); Hemoglobin 10.2 g/dL (14.0-18.0)
[2018-11-26 17:11] LABS: Hematocrit (blood only) 27.9 % (42-52); Hemoglobin 9.7 g/dL (14.0-18.0)
--- NOTE | 2018-12-03 14:03 | Discharge Summary ---
Date of Service date of admission - November 22, 2018 date of discharge - November 26, 2018 Admission HPI Per Admitting Provider 78 yo male with recent history of trigger finger release by Dr. Colin on 11/21/18 who presented to the ED on 11/22/18 with c/o bloody bowel movements. The patient has never had GI bleeding in the past. No history of ulcers, no history of diverticular disease to his knowledge. He does have hemorrhoids but they never bleed. He had a colonoscopy a few years ago, thinks he had a few polyps. He felt well, was recovering from trigger finger release. He was taking a prophylactic antibiotic. Ate well yesterday, no suspicious food like undercooked chicken or beef. He had urge to move bowels this morning and he described it as large volume diarrhea but it was stool mixed with both red and dark blood as well as clots. There was no abdominal pain associated with the BM. No nausea or vomiting. He came to the ED. Vitals were stable, Hb was 16. ED planned to send him home with GI follow up with [facility]. However, he had two further large BMs mixed with dark blood and bright red blood. Mother had colon cancer. Principal Diagnosis lower GI bleed Discharge Exam Constitutional well developed and well nourished; no acute distress and not ill appearing ENMT external ear and nose normal, oropharynx normal Respiratory normal respiratory effort, lungs clear to auscultation Cardiovascular Rate/Rhythm: regular rate and regular rhythm Heart Sounds: normal S1 and normal S2; no murmur Vessels: posterior tibial pulses present and dorsalis pedis pulses present; no JVD Extremities: no edema Gastrointestinal (Abdomen) normal bowel sounds, soft, nontender, no hepatosplenomegaly Skin no pallor Psychiatric A+Ox3, euthymic affect Discharge Data Allergies Allergy/AdvReac Type Severity Reaction Status Date / Time Iodinated Contrast- Oral and Allergy Mild RASH Verified 11/23/18 16:23 IV Dye Consultations gastroenterology - Jamel Yee DO Procedures Performed 1. Operation Date: 11/23/18 Esophagogastroduodenoscopy - Jamel Chavez Case, DO EGD entirely normal except for small hiatal hernia. 2. Operation Date: 11/24/18 Colonoscopy - Jamel Chavez Case, DO - Blood in the rectum, in the sigmoid colon, in the descending colon and in the transverse colon. - Diverticulosis in the sigmoid colon and in the descending colon. - Non-bleeding internal hemorrhoids. Hospital Course (1) GI bleed: Lower GI in origin. EGD normal on 11/23/18. Colonoscopy 11/24/18 with some old blood in left side of colon in setting of d iverticular disease. No blood in ascending colon and no active bleeding during the colonoscopy. Bleeding was felt to be DIVERTICULAR IN ORIGIN. Post-colonoscopy the patient did not have bleeding per rectum again. Diet was resumed and advanced without difficulty. Discharge hemoglobin was 9.7 (admission Hb 16.5). He did not require blood transfusion. He was hemodynamically stable his entire stay. At discharge he was advised to take a fiber supplement daily for his hemorrhoids as well as diverticular disease. (2) Acute blood loss anemia: Hb 16.5 on day of admission. Discharge hemoglobin was 9.7. H/H were stable in the 24 hours prior to discharge. He was advised to take an iron supplement twice daily for 2-3 months. Repeat CBC within 5 days of discharge also recommended. (3) Hypertension: He will continue Lotrel and metoprolol as previous. (4) Depression: He will continue Abilify and Effexor as previous. (5) S/P trigger finger release: 11/21/18 - left hand - by Dr. Roy. no issues while here. Total Time Total Time Spent Total Time Spent (In Minutes): 40 Total Time Includes: Examination of the Patient, Discharge Planning and Medication Reconciliation Discharge Plan Discharge Items Patient Disposition: Home - Self-Care Reason For Visit: ACUTE GI BLEED Discharge Diagnosis: lower gastrointestinal bleeding - likely due to diverticular disease Condition: Good Discharge Goals: Diagnostic testing Activity: As commented below Activity Comment: take it easy until seen by Dr Rogers then gradually increase activities Exercise/Sports: Wait until after follow-up appointment Non-emergency contact: Primary Care Provider Call non-emergency contact if: you have any medication questions, your symptoms worsen and your temperature is above 100.5 Follow-up/Referrals: Noel Rogers, [Primary Care Provider] - 11/29/18 2:10 pm (Please, follow up at Dr. Rogers's office with his associate, Dr. Amalia Moore, on TuesdayNovember 29 at 2:10 pm. *If you need to change this appointment, call the office at [phone].) Diet: Regular Addtl Provider Instructions: From Dung Robledo - Hospitalist - You were admitted to [facility] due to rectal bleeding. You underwent an upper endoscopy ("EGD") and lower endoscopy (colonoscopy) to locate the source of the bleeding. The EGD was entirely normal. The colonoscopy showed old blood from the mid-way point of the colon down to the rectum in the areas where you have diverticulosis. There was no active bleeding during the colonoscopy. You also had internal hemorrhoids but these were not bleeding or inflamed. It was suspected that your lower GI bleeding was due to your diverticulosis. At time of discharge your hemoglobin was 9.7 ("blood count"). I would recommend the following - 1. discontinuation of any aspirin or aspirin-containing product. 2. avoidance of motrin (ibuprofen) or alleve (naprosyn or naproxen). 3. the above medications can enhance the risk of bleeding. 4. tylenol IS ok for aches/pains and will not cause bleeding. 5. start ferrous sulfate (iron) -- 325mg twice a day with a glass of orange juice. You can purchase the iron [id number]. Please take this for 1-[address]. Rogers can tell you when to stop taking the iron. Know that iron can cause constipation and it will make your stools look dark. 6. please have Dr. Rogers repeat your CBC blood count on Tuesday. 7. follow-up -- see Dr. Rogers as scheduled this week. 8. lastly, please take a dedicated fiber supplement (Metamucil) for your diverticular disease and the hemorrhoids. Return to [facility] if -- * you see bright red blood or maroon-colored blood in your stools * you have abdominal pain * you have nausea or vomiting * you develop fevers over 100.5 degrees * any other concerns Prescriptions: New ferrous sulfate 325 mg (65 mg iron) tablet 325 mg PO BID Qty: 60 RF: 1 Continued metoprolol succinate 50 mg Tablet Extended Release 24 Hr 50 mg PO QAM RF: 0 sumatriptan succinate 100 mg Tablet 1 dose PO UD PRN (Reason: Migraine Headache) RF: 0 quetiapine [Seroquel] 100 mg Tablet 100 mg PO HS RF: 0 amlodipine-benazepril [Lotrel] 5-20 mg Capsule 1 cap PO QAM RF: 0 pantoprazole 40 mg Tablet,Delayed Release (Dr/Ec) 40 mg PO QAM RF: 0 allopurinol 300 mg Tablet 150 mg PO QPM RF: 0 aripiprazole [Abilify] 2 mg Tablet 1 mg PO QAM RF: 0 venlafaxine 150 mg Tablet Extended Release 24hr 150 mg PO QAM RF: 0 testosterone cypionate [Depo-Testosterone] 200 mg/mL oil 1 dose subcut DIRECTED RF: 0 Stand-Alone Forms: [facility]/Other Patient Handouts: Endoscopy Lower GI, Endoscopy Upper GI, Bleeding Rectal Discharge Orders: Discharge Order (Routine); Ordered 11/26/18 Ordered By: Dung Robledo Admission Data Admit Date/Time: 11/22/18 14:22 Attending Provider: Dung Robledo Admit Provider: Jj Morataya Primary Care Provider: Noel Rogers Other Providers: Jj Morataya ; Jamel Yee Service: Surgical Services Other Interventions: Discharge Summary Assessment (RN) Last Done: 11/26/18 18:13 Pending Studies at Discharge: No DC Date/Time DO NOT enter until pt leaves facility: 11/26/18 18:46
== END 2018-11-26 18:46 | disposition home or self-care (01) | DRG 378 ==
LOC: ED 09:30 → SUATTDRO 14:22 → 3W 14:22
DX: Z98.49 Cataract extraction status, unspecified eye; I10 Essential (primary) hypertension; Z79.82 Long term (current) use of aspirin; D62 Acute posthemorrhagic anemia; F32.9 Major depressive disorder, single episode, unspecified; K21.9 Gastro-esophageal reflux disease without esophagitis; H91.93 Unspecified hearing loss, bilateral; G89.29 Other chronic pain; F41.9 Anxiety disorder, unspecified; Z83.3 Family history of diabetes mellitus; Z91.041 Radiographic dye allergy status; Z80.0 Family history of malignant neoplasm of digestive organs; K92.2 Gastrointestinal hemorrhage, unspecified; M10.9 Gout, unspecified